=== PATIENT | female | born 1980 | race African-American/Black ===

== ENCOUNTER 2023-08-04 10:54 | Emergency (ER) | payer BC, OTHER, SELFPAY ==
[2023-08-04 10:58] VITALS: BP 114/77; PULSE 64; RESP 18; TEMP 37; O2SAT 99; BMI 33.1
--- NOTE | 2023-08-04 11:07 | ED_ITS ---
HPI - General Adult General Chief complaint: Abdominal Pain Stated complaint: facial swelling/ abd pain Time Seen by Provider: 08/04/23 11:16 Source: patient Mode of arrival: ambulatory Limitations: no limitations History of Present Illness HPI narrative: 43 yo female with PMH of fibromyalgia notes a few days of URI symptoms green bloody nasal drainage - facial pain and swelling feeling weak and dizzy, poor PO intake. taking celecoxib for chronic knee pain - felt unwell working for [employer] yesterday and couldn't finish driving or working. The patient notes her upper abdomen hurts and she has hx of gastritis not on antacids no GIB symptoms, no vomiting has had mild nausea. Could not make it to work today. MD complaint: sinus complaints, upper abdominal pain Onset (ago): day(s) (few) Location: head and abdomen Radiation: non-radiation Severity: moderate Quality: aching Pain Consistency: intermittent Relieving factors: rest Exacerbating factors: movement Associated symptoms: other (sinus pressure, congestion, abdominal pain, nausea, feels weak) Treatments prior to arrival: cold therapy Related Data Previous Rx's Medication Instructions Recorded azithromycin 250 mg tablet See Rx Instructions PO .COMPLEX #6 08/04/23 tabs omeprazole 20 mg capsule,delayed 20 mg PO DAILY #10 caps 08/04/23 release Allergies Allergy/AdvReac Type Severity Reaction Status Date / Time amoxicillin Allergy Intermediate Diarrhea Verified 08/04/23 10:58 Sulfa (Sulfonamide Allergy Intermediate Rash Verified 08/04/23 10:58 Antibiotics) Review of Systems 2 Review of Systems: Constitutional : No Fever, No Chills, pos Fatigue ENT/Mouth : No sore throat, No Rhinorrhea, pos sinus pressure, pos congestion Eyes: No Eye Pain, No Swelling, No Redness Cardiovascular : No Chest Pain, No SOB, No Dyspnea on Exertion Respiratory : No Cough, No Sputum Gastrointestinal : pos Nausea, No Vomiting, No Diarrhea, pos abdominal Pain Genitourinary : No Dysuria, No Urinary Frequency, No Hematuria, Musculoskeletal : No joint pain, No Myalgias, No Joint Swelling Skin : No Skin Lesions, No rash Neuro : No Weakness, No Numbness, pos intermittent Dizziness, no Headache Psych : No Anxiety/Panic, No Depression Heme/Lymph: No Bruising, No Bleeding,No Lymphadenopathy Endocrine : No Polyuria, No Polydipsia All other systems reviewed and are negative [facility] Past Medical History Attestation statement: The following information was validated with the patient. Medical History Fibromyalgia Social History Social History (Updated 08/04/23 @ 11:59 by Vaishali Lemus DO) Patient Tobacco Use Status: Never used Tobacco Physical Exam ED Vital Signs: Vital Signs - 24 hr 08/04/23 10:58 Temperature 98.6 F Pulse Rate 64 Respiratory Rate 18 Blood Pressure 114/77 Pulse Oximetry 99 Oxygen Delivery Method Room Air BMI result Body Mass Index 33.1 Appearance: Alert. Oriented X3. No acute distress. Eyes: Pupils equal, round and reactive to light. ENT: Pharynx normal. Sinus max ttp no facial cellulitis Neck: Normal inspection. Neck supple. no meningeal signs CVS: Normal heart rate and rhythm. Pulses normal. Respiratory: No respiratory distress. Breath sounds normal. Abdomen: Soft and nontender. no rebound Skin: Skin warm and dry. Normal skin color. Normal skin turgor. Extremities: No lower extremity edema. No calf ttp Neuro: Oriented X 3. No motor deficit. No sensory deficit. Course Course Course Narrative: This is an RME: Additional HPI, ROS, PE not included below will be deferred to primary provider. This is a 43-year-old female presenting to the emergency department with complaints of sore throat, nasal congestion abdominal pain nauseous yesterday. Vital signs within. Patient appears comfortable, in no acute distress. Plan: Labs viral swab, UA Medical Decision Making Medical Decision Making [facility] Narrative: 43 yo female with PMH of gastritis and fibromyalgia here with sinusitis no concern for deeper space infection and no GIB symptoms suspect upper abdominal pain associated with celecoxib use - she has no other symptoms and benign abdominal exam no concern for perforated ulcer. At this time will obtain basic labs, viral panel. Start on PPI, hold her celecoxib and start on zpak. anticipate DC home. Differential Diagnosis Differential Diagnoses: The differential diagnosis associated with the presentation includes viral syndrome, gastritis, sinusitis Admission/Observation Consideration of admission/observation: Escalation of care including admission/observation considered not toxic, labs stable, can be managed at home Lab Data [facility] Lab Attestation statement: I reviewed the patient's lab results. 08/04/23 11:13 08/04/23 11:13 Labs: Lab Results 08/04/23 Range/Units 11:13 WBC 5.6 (4.8-10.8) X10*3/uL RBC 4.69 (4.20-5.50) X10*6/uL Hgb 12.6 (12.0-16.0) g/dl Hct 40.0 (37.0-47.0) % MCV 85.3 (80.0-98.0) fL MCH 26.9 L (27.0-33.0) pg MCHC 31.5 (31.0-35.0) g/dl RDW 13.7 (11.0-16.0) % Plt Count 261 (160-400) X10*3/uL MPV 10.0 (9.4-12.3) fL Immature Gran % (Auto) 0.2 (0.0-0.4) % Neut % (Auto) 55.3 (45-73) % Lymph % (Auto) 33.3 (20-40) % Morrill % (Auto) 8.9 (2-11) % Eos % (Auto) 1.6 (0-4) % Baso % (Auto) 0.7 (0-2) % Lymph # (Auto) 1.9 (1.2-4.9) X10*3/uL Morrill # (Auto) 0.5 (0.1-1.2) X10*3/uL Eos # (Auto) 0.1 (0.0-0.4) X10*3/uL Baso # (Auto) 0.0 (0.0-0.2) X10*3/uL Abs Immat Gran (auto) 0.01 (0.00-0.03) X10*3/uL Absolute Neuts (auto) 3.1 (2.0-8.3) x10*3/uL Absolute Nucleated RBC 0.000 (0.0-0.012) X10*3/uL Nucleated RBC % (auto) 0.0 (0.0-0.2) /100WBC Prescription Management I considered prescription management with: Antibiotic and Other Discharge Plan Discharge Clinical Impression: Sinusitis Qualifiers: Sinusitis location: maxillary Chronicity: acute Recurrence: non-recurrent Q ualified Code(s): J01.00 - Acute maxillary sinusitis, unspecified Gastritis Qualifiers: Gastritis type: unspecified gastritis Chronicity: acute Gastritis bleeding: w ithout bleeding Qualified Code(s): K29.00 - Acute gastritis without bleeding Patient Disposition: Home, Self-Care Instructions: Gastritis (ED), Sinusitis (ED) Additional Instructions: return for fevers, worsening symptoms, difficulty breathing, inability to eat or drink, stop taking NSAIDs (motrin, ibuprofen, aleve) you can take tylenol stay hydrated. take a probiotic while on antibiotic you can use saline flushed over the counter for sinus relief as well. COVID test negative, labs look good Prescriptions: New azithromycin 250 mg tablet See Rx Instructions .ROUTE .COMPLEX Qty: 6 0RF Rx Instructions: For 250 mg dose pack: take 500 mg today (day 1), then 250 mg for 4 days (days 2-5) omeprazole 20 mg capsule,delayed release(DR/EC) 20 mg PO DAILY Qty: 10 0RF Stand Alone Forms: Work/School Release
[2023-08-04 11:20] LABS: MANUAL DIFF FLAG NO
[2023-08-04 11:27] LABS: Basophils Percent Auto 0.7 % (0-2); Eosinophils Absolute Auto 0.1 X10*3/uL (0.0-0.4); Eosinophils Percent Auto 1.6 % (0-4); Hemoglobin 12.6 g/dl (12.0-16.0); Imm Gran Abs Auto 0.01 X10*3/uL (0.00-0.03); Imm Gran Pct Auto 0.2 % (0.0-0.4); Lymphocytes Absolute Auto 1.9 X10*3/uL (1.2-4.9); Lymphocytes Percent Auto 33.3 % (20-40); Mean Corpuscular HGB Conc 31.5 g/dl (31.0-35.0); Mean Corpuscular Hemoglobin 26.9 pg (27.0-33.0); Mean Corpuscular Volume 85.3 fL (80.0-98.0); Monocytes Absolute Auto 0.5 X10*3/uL (0.1-1.2); Monocytes Percent Auto 8.9 % (2-11); Neutrophils Absolute Auto 3.1 x10*3/uL (2.0-8.3); Neutrophils Percent Auto 55.3 % (45-73); Platelet Count 261 X10*3/uL (160-400); Red Blood Count 4.69 X10*6/uL (4.20-5.50); Red Cell Distribution Width 13.7 % (11.0-16.0); White Blood Count 5.6 X10*3/uL (4.8-10.8)
[2023-08-04 11:45] LABS: Alanine Aminotransferase 12 U/L (0-31); Albumin Level 4.1 g/dL (3.5-5.0); Alkaline Phosphatase 59 U/L (39-117); Anion Gap 9 (12-20); Aspartate Amino Transferase 18 U/L (5-31); Bilirubin Direct 0.3 mg/dL (0.0-0.5); Blood Urea Nitrogen 10 mg/dL (9-16); Calcium 9.1 mg/dL (8.4-10.2); Carbon Dioxide 27 mmol/L (22-29); Chloride 107 mmol/L (96-108); Creatinine Clr Calc Pharmacy 88.6; Estimated Glomerular Filt Rate > 60; Glucose Random 94 mg/dL (60-115); HCG Quantitative < 2 mIU/mL; Lipase 12 U/L (8-78); Potassium 4.1 mmol/L (3.3-5.1); Sodium 139 mmol/L (135-145); Total Protein 7.4 g/dL (6.5-8.0)
[2023-08-04 11:57] LABS: Influenza A PCR NEGATIVE (Negative); Influenza B PCR NEGATIVE (Negative); Resp Syncy Virus RNA Qual PCR NEGATIVE (Negative); SARS COV2 PCR INHOUSE NEGATIVE (Negative)
[2023-08-04 12:12] VITALS: BP 129/86; PULSE 67; RESP 16; O2SAT 100
[2023-08-04 12:27] LABS: Appearance Urine Clear; Color Urine Yellow; Glucose Urine UA Negative (Negative); Leukocyte Esterase Urine Negative (Negative); Nitrite Urine Negative (Negative); PH 5.5 (5.0-9.0); Urine Blood Negative (Negative); Urine Ketones Negative (Negative); Urine Protein Negative (Neg-Trace)
== END 2023-08-04 12:33 | disposition home or self-care (01) ==
PROVIDERS: Physician Assistant Medical; Emergency Provider Emergency Medicine; PCP Nurse Practitioner Family
DX: J01.00 Acute maxillary sinusitis, unspecified (principal); K29.00 Acute gastritis without bleeding; Z20.822 Contact with and (suspected) exposure to COVID-19; Z20.828 Contact with and (suspected) exposure to other viral communicable diseases
CPT/HCPCS: 0241U; 36415; 80048; 80076; 81003; 83690; 84702; 85025; 99283; 99284

== ENCOUNTER 2023-11-20 07:39 | Emergency (ER) | payer OTHER, SELFPAY ==
--- NOTE | ~2023-11-20 | XR_ITS ---
EXAMINATION: XR SHOULDER, LEFT CLINICAL INFORMATION: Pain, no injury COMPARISON: None available. TECHNIQUE: AP external rotation, Grashey, scapular Y, and axillary views of the left shoulder. FINDINGS: The bones and soft tissues are normal. No fracture. Glenohumeral and acromioclavicular alignment is anatomic with normal joint space. No abnormal soft tissue calcifications. XR/XR shoulder LT min 2V IMPRESSION: Normal left shoulder.
[2023-11-20 07:57] VITALS: BP 138/63; PULSE 60; RESP 16; TEMP 37.2; O2SAT 98; BMI 34.1
--- NOTE | 2023-11-20 08:01 | ED.GENADULT ---
HPI - General Adult General Chief complaint: Extremity Problem Stated complaint: L Shoulder Pain No Injury Time Seen by Provider: 11/20/23 08:01 Source: patient Mode of arrival: ambulatory Limitations: no limitations History of Present Illness HPI narrative: Patient is a 43 yo assigned female at , with a history of fibromyalgia, presents to the ED with left shoulder pain. 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 A couple days ago she started to experience moderate pain in her left shoulder that has interfered with her ability to perform daily tasks, which prompted her to come in. Patient denies pain radiation, chest pain, and any incitable traumatic injury to the area. MD complaint: Left shoulder pain Onset (ago): day(s) (2) Location: left and upper extremity (Shoulder) Radiation: non-radiation Severity: mild Severity scale (1-10): 3 Quality: aching Pain Consistency: intermittent Relieving factors: rest Exacerbating factors: movement Associated symptoms: denies other symptoms Treatments prior to arrival: none Related Data Previous Rx's Medication Instructions Recorded azithromycin 250 mg tablet See Rx Instructions PO .COMPLEX #6 08/04/23 tabs omeprazole 20 mg capsule,delayed 20 mg PO DAILY #10 caps 08/04/23 release cyclobenzaprine 5 mg tablet 5 mg PO TID PRN muscle spasm 7 11/20/23 days #21 tabs Allergies Allergy/AdvReac Type Severity Reaction Status Date / Time amoxicillin Allergy Intermediate Diarrhea Verified 08/04/23 10:58 Sulfa (Sulfonamide Allergy Intermediate Rash Verified 08/04/23 10:58 Antibiotics) Review of Systems Constitutional: Constitutional: Reports no additional constitutional complaints, Denies chills, Denies fever(s) and Denies night sweats Eyes: Eyes: Reports no additional eye complaints, Denies blurry vision, Denies change in vision, Denies diplopia, Denies eye discharge, Denies loss of vision and Denies eye pain ENT: Denies dizziness Cardiovascular: Cardiovascular: Reports no additional cardiovascular complaints, Denies chest pain, Denies lightheadedness, Denies Loss of Consciousness and Denies dyspnea Respiratory: Respiratory: Reports no additional respiratory complaints and Denies dyspnea Gastrointestinal: Gastrointestinal: Reports no additional gastrointestinal complaints, Denies abdominal pain, Denies melena, Denies hematochezia, Denies change in bowel habits and Denies change in stool character Genitourinary: Genitourinary: Denies hematuria, Denies urinary frequency, Denies dysuria, Denies urinary incontinence, Denies urinary hesitancy and Denies urinary urgency Musculoskeletal: Musculoskeletal: Reports no additional musculoskeletal complaints, Denies numbness and Denies tingling Comments: left shoulder pain Neurologic: Denies dizziness, Denies loss of vision, Denies numbness and Denies tingling Psychiatric: Psychiatric: Reports no additional psychiatric complaints Endocrine: Endocrine: Reports no additional endocrine complaints Hematologic/Lymphatic: Hematologic/Lymphatic: Reports no additional hematologic/lymphatic complaints Allergic/Immunologic: Allergic/Immunologic: Reports no additional allergic/immunologic complaints [facility] Past Medical History Attestation statement: The following information was validated with the patient. Source: old records reviewed and nursing notes reviewed Medical History Fibromyalgia Social History Social History Alcohol intake: current Alcohol type: wine Patient Tobacco Use Status: Never used Tobacco Advance Directives: No Physical Exam ED Vital Signs: Vital Signs - 24 hr 11/20/23 07:57 Temperature 99 F Pulse Rate 60 Respiratory Rate 16 Blood Pressure 138/63 Pulse Oximetry 98 Oxygen Delivery Method Room Air BMI result Body Mass Index 34.1 Const General: cooperative, no acute distress, alert and awake Nutritional Appearance: average body habitus Orientation/consciousness: patient oriented x3 Limitations: no limitations HENMT Head: Yes normal to inspection and Yes atraumatic Ears: hearing grossly normal bilaterally and external ears normal General nose exam: Normal external nose present, no nasal discharge noted and no epistaxis Face and sinus: Yes normal facial exam, No abrasion and No laceration Mouth: Normal oral and palatal mucosa present, no drooling and no muffled voice Eyes General: appearance normal, both eyes and all related structures Periorbital: periorbital findings normal Eyelids: Yes eyelids normal Conjunctivae: conjunctivae normal Pupils: Equal, round and reactive pupils present EOM: EOMs intact bilaterally Neck Neck: Yes normal visual inspection, Yes full ROM and Yes no lymphadenopathy Chest Chest palpation & inspection: normal inspection of the chest Resp Effort & Inspection: normal respiratory effort and able to speak in complete sentences GI Inspection: Yes normal to inspection Neuro General: patient oriented x3 Cranial nerves: Yes Equal, round and reactive pupils present Cognition (Neuro): normal cognition Motor exam (neuro): 5/5 motor strength present throughout Sensory Exam: Normal double simultaneous stimulation for sensation Coordination: [id number] test normal Extrem Other: pain with left shoulder ROM General: Yes normal to inspection, Yes full ROM and Yes capillary refill normal Left upper extremity: shoulder/upper arm Details: abnormal ROM Details: pain with active ROM and pain with passive ROM; no deformity Psych Appearance: grossly normal Mental Status: mental status grossly normal Affect: normal affect Attitude: cooperative Thought process: Normal thought process present Thought content: Normal thought content present Insight: Good insight present (Psych) Medications Administered Discontinued Medications Generic Name Dose Route Start Last Admin Trade Name Freq PRN Reason Stop Dose Admin Cyclobenzaprine HCl 5 mg 11/20/23 08:44 11/20/23 09:01 Cyclobenzaprine Hcl 5 Mg Tablet PO 11/20/23 08:45 5 mg ONCE ONE Administration Methylprednisolone Sodium Succinate 60 mg 11/20/23 08:44 11/20/23 09:01 Methylprednisolone Sod Succ 125 Mg/2 Ml Vial IM 11/20/23 08:45 60 mg ONCE ONE Administration Medical Decision Making Medical Decision Making [facility] Narrative: Patient is a 43 year old assigned female at with a history of fibromyalgia presenting to the emergency department today with left shoulder pain. Patient's physical exam showed pain with active and passive ROM of the left shoulder but was otherwise unremarkable. Patient's left shoulder x-ray showed no acute process. I explained my physical exam findings as well as all test results to the patient. I answered all questions asked by the patient. I stressed the importance of the patient taking her medication as prescribed. I stressed the importance of the patient following up with her primary care provider, an orthopedic provider, and given this is a work place injury - [facility]. I stressed the importance of the patient returning to the emergency department immediately if her symptoms were to worsen or if she were to develop any dizziness, shortness of breath, difficulty breathing, chest pain, blurry vision, loss of vision, nausea, vomiting, abdominal pain, fever, chills, back pain, or any other complaints. Patient verbalized agreement and understanding with this treatment plan and discharge. Differential Diagnosis Differential Diagnoses: The differential diagnosis associated with the presentation includes Rotator cuff injury Shoulder pain Shoulder strain Shoulder sprain Admission/Observation Consideration of admission/observation: Escalation of care including admission/observation considered Patient would have been admitted to the hospital had her work up had any findings where hospital admission was appropriate and her clinical presentation warranted hospital admission. Independent Interpretation I performed an independent interpretation of an: Plain X-Ray Interpretation: My interpretation is in agreement with the radiologist's impression of this imaging study. EXAMINATION: XR SHOULDER, LEFT CLINICAL INFORMATION: Pain, no injury COMPARISON: None available. TECHNIQUE: AP external rotation, Grashey, scapular Y, and axillary views of the left shoulder. FINDINGS: The bones and soft tissues are normal. No fracture. Glenohumeral and acromioclavicular alignment is anatomic with normal joint space. No abnormal soft tissue calcifications. XR/XR shoulder LT min 2V IMPRESSION: Normal left shoulder. Dictated By: Peter Ramos MD Signed By: Electronically signed by Peter Ramos MD 11/20/23 0878 Radiology Impression Discussion of test interpretation with radiology: I have reviewed the radiologist's reading. Prescription Management I considered prescription management with: Pain Medication (patient prescribed pain medication) Discharge Plan Discharge Clinical Impression: Acute shoulder pain, Rotator cuff injury Patient Disposition: Home, Self-Care Instructions: Rotator Cuff Injury (ED), Shoulder Pain (ED), Rotator Cuff Injury Exercises (DC) Additional Instructions: Follow up with your primary care provider and an orthopedic provider. Return to the emergency department immediately if your symptoms worsen or if you develop any dizziness, shortness of breath, difficulty breathing, chest pain, blurry vision, loss of vision, nausea, vomiting, abdominal pain, fever, chills, back pain, or any other complaints. Prescriptions: New cyclobenzaprine 5 mg tablet 5 mg PO TID PRN (Reason: muscle spasm) 7 Days Qty: 21 0RF No Action azithromycin 250 mg tablet See Rx Instructions .ROUTE .COMPLEX Qty: 6 0RF Rx Instructions: For 250 mg dose pack: take 500 mg today (day 1), then 250 mg for 4 days (days 2-5) omeprazole 20 mg capsule,delayed release(DR/EC) 20 mg PO DAILY Qty: 10 0RF Referrals: [facility] [Provider Group] (Call to establish and follow up with an orthopedic provider. ) [facility] [Provider Group] (Given this is a work related injury, you should follow up with [facility].) Giovana Walsh NP [Primary Care Provider] - Stand Alone Forms: Work/School Release Interventions: ED Discharge Assessment Last Done: 11/20/23 09:11 Discharge Date/Time: 11/20/23 09:12 Print Language: Ivorian
[2023-11-20] MEDS: methylPREDNISolone Sod Succ 125 MG/2 ML VIAL 60 MG IM (09:01)
[2023-11-20] MEDS: Cyclobenzaprine HCl 5 MG TABLET PO (09:01)
--- NOTE | 2023-11-20 09:10 | PC.NURSE ---
pt medicated per order
== END 2023-11-20 09:12 | disposition home or self-care (01) ==
PROVIDERS: Emergency Provider Student in an Organized Health Care Education/Training Program; PCP Nurse Practitioner Family
DX: S43.422A Sprain of left rotator cuff capsule, initial encounter (principal); M25.512 Pain in left shoulder; X50.0XXA Overexertion from strenuous movement or load, initial encounter; X50.9XXA Other and unspecified overexertion or strenuous movements or postures, initial encounter; Y93.9 Activity, unspecified; Y92.9 Unspecified place or not applicable; Y99.0 Civilian activity done for income or pay
CPT/HCPCS: 73030; 99283; J2930

== ENCOUNTER 2023-11-28 07:57 | Outpatient (AMB) | payer OTHER, SELFPAY ==
--- NOTE | 2023-11-28 08:00 | MHC.OFFVIS ---
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 Patient reports her pain has been going on for about a week and is a 5 on the 1-10 pain scale. She states that she is using a muscle relaxer and Tylenol. She denies injury,injections, and surgery. She reports weakness when lifting her left hand above shoulder height. The patient does have fibromyalgia. 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, 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 Physical Exam Const Other: Well-nourished well-developed very friendly female awake alert and oriented x3 in no acute distress Extrem Other: Bilateral upper extremity examination shows good capillary refill, no skin lesions noted, normal sensation light touch Left shoulder examination shows decreased range of motion when compared to her right shoulder, 4+ out of 5 strength with supraspinatus testing, positive impingement signs, no instability Office Procedures Joint Injection/Drain Joint Injection/Drain Primary Site: left shoulder Prep: site was prepped using aseptic technique Injected: 40 mg of, DepoMedrol and 1% plain lidocaine Procedure: The patient tolerated the procedure well Coding 60529 - Large joint Procedure code (CPT) selection complete Results Reviewed Results Reviewed: X-rays of the patient's left shoulder show moderate to severe acromioclavicular joint narrowing, a type 2 acromion, no acute bony abnormalities Assessment & Plan Assessment & Plan (1) Left shoulder pain: Code(s): M25.512 - Pain in left shoulder (2) Impingement syndrome of left shoulder: Code(s): M75.42 - Impingement syndrome of left shoulder Plan Ms. Marino presents with left shoulder pain and weakness due to impingement syndrome as well as possible rotator cuff tearing. I had a lengthy discussion with the patient regarding the treatment options. The risks and benefits of a left shoulder cortisone injection were discussed at length with the patient. The patient wished to proceed. She tolerated the injection well. I will also send the patient for an MRI of her left shoulder to further evaluate the status of her rotator cuff tendons. I will see her back once the MRI is completed to discuss the findings and treatment options. She will continue with her range of motion exercises in the meantime to prevent stiffness. Feel free to call me at any time should questions regarding her orthopedic management arise. I spent 22 minutes in reviewing the patient's records and imaging studies, seeing the patient and documenting in the medical record. Orders: Orders MR shoulder LT wo con Today M25.512 - Pain in left shoulder AMB Joint Injection/Aspiration Today M75.42 - Impingement syndrome of left shoulder Coding Level of Care Code New Pt Level 2 (35299) Diagnoses Left shoulder pain M25.512 Impingement syndrome of left shoulder M75.42 CPT Codes Coding - 14438 Large joint: 87540 - Large joint ([id number])
== END 2023-11-28 08:33 | disposition home or self-care (01) ==
PROVIDERS: PCP Nurse Practitioner Family; Visit Provider Orthopaedic Surgery
DX: M25.512 Pain in left shoulder (principal); M75.42 Impingement syndrome of left shoulder
CPT/HCPCS: 20610; 99203

== ENCOUNTER → 2023-11-28 07:57 | Outpatient (BNVA) | payer OTHER, SELFPAY | PROVIDERS: PCP Nurse Practitioner Family; Visit Provider Orthopaedic Surgery | DX: M75.42 Impingement syndrome of left shoulder (principal); M25.512 Pain in left shoulder | CPT/HCPCS: 20610; 99202; J1020 ==

== ENCOUNTER 2024-09-08 08:36 | Emergency (ER) | payer OTHER, SELFPAY ==
--- NOTE | ~2024-09-08 | XR_ITS ---
EXAMINATION: XR CHEST CLINICAL INFORMATION: cough COMPARISON: None available. TECHNIQUE: 2 views of the chest were obtained. FINDINGS: Metallic rounded devices overlie the soft tissues of the bilateral cervical regions. There is no gross pneumothorax. Heart size is normal. No significant pleural effusion. No focal consolidation. A 5 mm nodule overlies a mid thoracic vertebral body, possibly related to parenchymal nodule or vascularity versus bony nodule. Direct correlation with prior images is recommended and if prior images are provided, an addendum will be dictated. In the absence of prior images, CT scan recommended for further evaluation. XR/XR chest 2V IMPRESSION: A 5 mm nodule overlies a mid thoracic vertebral body, possibly related to parenchymal nodule or vascularity versus bony nodule. Direct correlation with prior images is recommended and if prior images are provided, an addendum will be dictated. In the absence of prior images, CT scan recommended for further evaluation. This study was presented today to September 08, 2024 for interpretation. Stat results provided at this time as requested by referring provider. Electronically signed by: Cassandra Beck MD 09/08/2024 09:45 AM EST
--- OUTSIDE RECORDS SUMMARY | 2024-09-08 08:40 | XMS_ITS ---
Author Name [facility] Organization Unknown History of Medication Use Medication Directions Dispensed Refills Start Date End Date Stat us meloxicam (MOBIC) 15 mg tablet Take 1 tablet (15 mg total) by mouth daily. 03/15/2022 active fluconazole (DIFLUCAN) 150 mg tablet Take 1 tablet (150 mg total) by mouth once for 1 dose. Repeat in 72 hours if still symptomatic 07/23/2022 active ondansetron (Zofran) 8 mg tablet Take 1 tablet (8 mg total) by mouth every 8 (eight) hours as needed for nausea or vomiting for up to 7 days. 03/29/2022 active metroNIDAZOLE (FLAGYL) 500 mg tablet TAKE 1 TABLET BY MOUTH IN THE MORNING AND 1 AT BEDTIME FOR 7 DAYS 05/19/2022 aborted metroNIDAZOLE (Metrogel Vaginal) 0.75 % (37.5mg/5 gram) gel Apply vaginally every night for 5 nights. Then once a week for 6 months 07/23/2022 active doxycycline (VIBRAMYCIN) 100 mg capsule Take 1 capsule (100 mg total) by mouth in the morning and 1 capsule (100 mg total) before bedtime. Do all this for 7 days. 03/19/2022 aborted metroNIDAZOLE (FLAGYL) 500 mg tablet Take 1 tablet (500 mg total) by mouth in the morning and 1 tablet (500 mg total) before bedtime. Do all this for 7 days. 04/06/2022 active Problems Problem Status Onset Date Problem Type Date of Resoluti on Source Nausea active 2020-08-17 ProblemAct [facility] ADD (attention deficit disorder) active 2018-01-16 ProblemAct [facility] Fibromyalgia active 2018-01-16 ProblemAct [facility] Menorrhagia with regular cycle active 2018-01-25 ProblemAct [facility] Epigastric pain active 2020-08-[address] Problem[address] [facility]
[2024-09-08 08:43] VITALS: BP 146/96; PULSE 76; RESP 16; TEMP 36.5; O2SAT 98; BMI 37.6
[2024-09-08 09:57] LABS: Influenza A PCR NEGATIVE (Negative); Influenza B PCR NEGATIVE (Negative); Resp Syncy Virus RNA Qual PCR NEGATIVE (Negative); SARS COV2 PCR INHOUSE NEGATIVE (Negative)
[2024-09-08 09:58] LABS: IDNOW Serial# 58CA691E; Strep A Nucleic Acid Negative (Negative)
[2024-09-08 11:11] VITALS: BP 150/96; PULSE 62; RESP 16; O2SAT 100
--- NOTE | 2024-09-08 11:17 | ED_ITS ---
HPI - General Adult General Chief complaint: Upper Respiratory Symptoms Stated complaint: Headache, bilateral ear pain Time Seen by Provider: 09/08/24 09:02 Source: patient and RN notes reviewed Mode of arrival: ambulatory Limitations: no limitations History of Present Illness ED Provider: Rozina Nolasco PA-C [facility] narrative: This is a 44-year-old female, with a history of fibromyalgia, who presents emergency department with complaints of headaches, sore throat, bilateral ear pain, and productive cough for the last week. Patient has been taking [id number] cold and flu medication without any relief. No known fevers. No chest pain or shortness of breath. She states that her ears have been causing her to have significant pain. No other complaints or concerns at this time. MD complaint: Cough, sore throat, bilateral ear pain Onset (ago): week(s) Relieving factors: none Exacerbating factors: none Associated symptoms: cough and headaches Treatments prior to arrival: none Related Data Previous Rx's ?Medication ?Instructions ?Recorded azithromycin 250 mg tablet See Rx Instructions PO .COMPLEX #6 08/04/23 tabs omeprazole 20 mg capsule,delayed 20 mg PO DAILY #10 caps 08/04/23 release cyclobenzaprine 5 mg tablet 5 mg PO TID PRN muscle spasm 7 11/20/23 days #21 tabs azithromycin 250 mg tablet See Rx Instructions PO .COMPLEX #6 09/08/24 tabs Allergies Allergy/AdvReac Type Severity Reaction Status Date / Time amoxicillin Allergy Intermediate Diarrhea Verified 09/08/24 08:45 Sulfa (Sulfonamide Allergy Intermediate Rash Verified 09/08/24 08:45 Antibiotics) Review of Systems Review of Systems: Yes all other systems are reviewed and are negative Constitutional: Constitutional: Reports as per [facility] Past Medical History Medical History Fibromyalgia Social History Social History (Updated 11/28/23 @ 08:06 by Christie Ledesma CMA) Alcohol intake: current Alcohol type: wine Patient Tobacco Use Status: Never used Tobacco Advance Directives: No Advance Directives Information Provided: Yes 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 After irrigation, TMs are intact, no TM perforation, no evidence of erythema or edema. Head: Yes normal to inspection, Yes normocephalic and Yes atraumatic Ears: hearing grossly normal bilaterally and TM's normal bilaterally General nose exam: Normal external nose present Face and sinus: Yes normal facial exam Mouth: Normal oral and palatal mucosa present, oropharynx normal and moist mucous membranes Throat: Yes posterior oropharynx normal Eyes General: appearance normal, both eyes and all related structures Eyelids: Yes eyelids normal Conjunctivae: conjunctivae normal Sclerae: sclerae normal Pupils: Equal, round and reactive pupils present EOM: EOMs intact bilaterally Neck Neck: Yes normal visual inspection, Yes full ROM and Yes no lymphadenopathy Lymphatic: no lymphadenopathy noted Chest Chest palpation & inspection: normal inspection of the chest Resp Effort & Inspection: normal respiratory effort and able to speak in complete sen tences Auscultation: clear to auscultation bilaterally, no crackles, no rales, no rhonchi and no wheezes Cardio Rate: regular rate Rhythm: regular rhythm Heart sounds: S1 normal heart sound present and S2 normal heart sound present GI Inspection: Yes normal to inspection Skin General skin exam: no rashes or lesions noted Trauma: no lacerations or abrasions Wounds: no wounds Neuro General: patient oriented x3 and moves all extremities Cranial nerves: Yes Equal, round and reactive pupils present Extrem General: Yes normal to inspection Right upper extremity: normal to inspection Left upper extremity: normal to inspection Right lower extremity: normal to inspection Left lower extremity: normal to inspection Medications Administered Discontinued Medications Generic Name Dose Route Start Last Admin Trade Name Freq PRN Reason Stop Dose Admin Docusate Sodium 100 mg 09/08/24 11:29 09/08/24 11:34 Docusate Sodium 100 Mg/10 Ml Liquid PO 09/08/24 11:30 100 mg ONCE ONE Administration Medical Decision Making Medical Decision Making MDM Narrative: This is a 44-year-old female who presents emergency department with complaints of headache, bilateral ear pain, cough x1 week. On arrival, vital signs within normal limits. She is speaking full sentences under no acute distress. Bilateral ears are impacted with cerumen, this was irrigated, large cerumen this impacted. Chest x-ray was obtained. Chest x-ray revealing no evidence of pneumonia however there is a 5 mm nodule overlying the midthoracic vertebral body, related to either a parenchymal nodule or vascularity versus pull bony nodule. Discussed this with patient. She will follow-up with her PCP for CT scan. She tested negative for COVID, flu, RSV and strep throat. Will treat as a acute sinusitis, given strict return precautions. Patient stable for discharge Differential Diagnosis Differential Diagnoses: The differential diagnosis associated with the presentation includes Sinusitis, URI, bronchitis, pneumonia Lab Data MDM Lab Attestation statement: I reviewed the patient's lab results. Negative Labs: Lab Results 09/08/24 Range/Units 09:09 Influenza Type A (PCR) NEGATIVE (Negative) Influenza Type B (PCR) NEGATIVE (Negative) RSV RNA Qual (PCR) NEGATIVE (Negative) SARS-CoV-2 RNA (RT-PCR) NEGATIVE (Negative) S. pyogenes GrpA NICOLE Negative (Negative) Radiology Impression Discussion of test interpretation with radiology: I have reviewed the radiologist's reading. Radiologist Impression: XR/XR chest 2V IMPRESSION: A 5 mm nodule overlies a mid thoracic vertebral body, possibly related to parenchymal nodule or vascularity versus bony nodule. Direct correlation with prior images is recommended and if prior images are provided, an addendum will be dictated. In the absence of prior images, CT scan recommended for further evaluation. This study was presented today to September 08, 2024 for interpretation. Stat results provided at this time as requested by referring provider. Electronically signed by: Cassandra Beck MD 09/08/2024 09:45 AM [facility] Dictated By: Cassandra Beck MD Discharge Plan Discharge Clinical Impression: Sinusitis, Bilateral impacted cerumen, Abnormal x-ray Patient Disposition: Home, Self-Care Instructions: Sinusitis (ED) Additional Instructions: You were seen in the emergency department due to multiple complaints. Both of your ears were impacted with ear wax, we flushed both of your ears. Please take prescribed antibiotic as directed, finish the entire course even if your symptoms improve. Alternate between ibuprofen and Tylenol as needed for pain and fevers. You tested negative for COVID, flu, RSV, and strep throat today. Your chest x-ray does show a nodule, this needs to be followed up by your primary care physician as they likely need to perform a CT scan. It is unclear how long he had this nodule. If any new or worsening symptoms occur including but not limited to chest pain, shortness of breath, worsening headache, fevers not responding to Tylenol or Motrin, worsening pain, please seek emergent care. Prescriptions: New azithromycin 250 mg tablet See Rx Instructions .ROUTE .COMPLEX Qty: 6 0RF Rx Instructions: For 250 mg dose pack: take 500 mg today (day 1), then 250 mg for 4 days (days 2-5) No Action azithromycin 250 mg tablet See Rx Instructions .ROUTE .COMPLEX Qty: 6 0RF Rx Instructions: For 250 mg dose pack: take 500 mg today (day 1), then 250 mg for 4 days (days 2-5) omeprazole 20 mg capsule,delayed release(DR/EC) 20 mg PO DAILY Qty: 10 0RF cyclobenzaprine 5 mg tablet 5 mg PO TID PRN (Reason: muscle spasm) 7 Days Qty: 21 0RF Stand Alone Forms: Work/School Release Interventions: ED Discharge Assessment Last Done: 09/08/24 13:19 Discharge Date/Time: 09/08/24 13:20 Print Language: Malay
[2024-09-08] MEDS: Docusate Sodium 100 MG/10 ML LIQUID PO (11:34)
[2024-09-08 13:19] VITALS: BP 150/96; PULSE 62; RESP 16; TEMP 37.1; O2SAT 100
== END 2024-09-08 13:20 | disposition home or self-care (01) ==
PROVIDERS: Emergency Provider Emergency Medicine
DX: J32.9 Chronic sinusitis, unspecified (principal); H61.23 Impacted cerumen, bilateral; R93.89 Abnormal findings on diagnostic imaging of other specified body structures; J02.9 Acute pharyngitis, unspecified; Z03.818 Encounter for observation for suspected exposure to other biological agents ruled out; R05.9 Cough, unspecified
CPT/HCPCS: 0241U; 69209; 71046; 87651; 99283

== ENCOUNTER 2024-12-23 13:30 | Emergency (ER) | payer OTHER, SELFPAY ==
--- NOTE | ~2024-12-23 | XR_ITS ---
EXAMINATION: XR CHEST 2 VIEWS HISTORY: cough COMPARISON: Comparison is made with the prior examination dated 09/08/2024. FINDINGS: PA and lateral views of the chest are submitted. The lungs are expanded and clear. There is no pleural effusion, pneumothorax, or pulmonary vascular congestion. The heart is normal in size. The bones are intact. XR/XR chest 2V IMPRESSION: No acute cardiopulmonary abnormality. Electronically signed by: Tay Castro MD 12/23/2024 02:00 PM EDT
[2024-12-23 13:36] VITALS: BP 169/88; PULSE 73; RESP 18; TEMP 36.8; O2SAT 99; BMI 36.3
--- NOTE | 2024-12-23 13:37 | ED_ITS ---
HPI - General Adult General Chief complaint: General Medical Stated complaint: Cough, sore throat, STD testing Time Seen by Provider: 12/23/24 15:04 Source: patient and old records reviewed Mode of arrival: ambulatory Limitations: no limitations History of Present Illness ED Provider: HALEY SUERO narrative: 44 yo female no sig PMH here with sore throat and cough/body aches x 1 day she also feels she lost her voice. She did take nyquil with some relief. She has had fevers and chills. No sick contacts. She has longstanding hx of BV and feels like she has an odor - wants to be tested. No n/v/d. She is able to swallow and tolerate PO MD complaint: sore throat, vaginal odor Onset (ago): day(s) (1) Location: mouth Radiation: non-radiation Severity: mild Quality: aching Pain Consistency: intermittent Relieving factors: none Exacerbating factors: other (swallowing) Associated symptoms: cough, fever/chills, malaise and other (myalgias) Related Data Previous Rx's ?Medication ?Instructions ?Recorded azithromycin 250 mg tablet See Rx Instructions PO .COMPLEX #6 08/04/23 tabs omeprazole 20 mg capsule,delayed 20 mg PO DAILY #10 caps 08/04/23 release cyclobenzaprine 5 mg tablet 5 mg PO TID PRN muscle spasm 7 11/20/23 days #21 tabs azithromycin 250 mg tablet See Rx Instructions PO .COMPLEX #6 09/08/24 tabs metronidazole 500 mg tablet 500 mg PO BID 7 days #14 tabs 12/23/24 fluconazole 150 mg tablet 150 mg PO Q3D 2 doses #2 tabs 12/24/24 Allergies Allergy/AdvReac Type Severity Reaction Status Date / Time amoxicillin Allergy Intermediate Diarrhea Verified 12/23/24 13:37 Sulfa (Sulfonamide Allergy Intermediate Rash Verified 12/23/24 13:37 Antibiotics) Review of Systems Review of Systems: Constitutional : pos Fever, pos Chills, No Fatigue ENT/Mouth : pos sore throat, pos Rhinorrhea Eyes: No Eye Pain, No Swelling, No Redness Cardiovascular : No Chest Pain, No SOB, No Dyspnea on Exertion Respiratory : pos Cough, No Sputum Gastrointestinal : No Nausea, No Vomiting, No Diarrhea, No abdominal Pain Genitourinary : No Dysuria, No Urinary Frequency, No Hematuria, Musculoskeletal : No joint pain, pos Myalgias, No Joint Swelling Skin : No Skin Lesions, No rash Neuro : No Weakness, No Numbness, No Dizziness, positive Headache All other systems reviewed and are negative [facility] Past Medical History Attestation statement: The following information was validated with the patient. 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 Oriented X3. No acute distress. Eyes: Pupils equal, round and reactive to light. ENT: Pharynx prior tonsillectomy - uvulua is midline, no petechia, no exudates, uvula is mildly swollen and erythematous no fluid filled sac noted Neck: Normal inspection. Neck supple. CVS: Normal heart rate and rhythm. Pulses normal. Respiratory: No respiratory distress. Breath sounds normal. Abdomen: Soft and nontender. Skin: Skin warm and dry. Normal skin color. Normal skin turgor. Extremities: No lower extremity edema. No calf ttp Neuro: Oriented X 3. No motor deficit. No sensory deficit. CN2-12 intact Course Course Course Narrative: RME, this is a rapid medical exam performed by Shyam Dudley please refer to primary provider for complete H&P- 44-year-old female presents for evaluation of cough, sore throat for the last few days. She also reports vaginal odor and history of recurrent BV. Plan for viral swabs and strep throat testing as well as a chest x-ray. Reevaluation(s) Reevaluation #1: 1-2 hours for BV result will DC and call patient tomorrow if positive based off symptoms and hx will give flagyl Reevaluation #2: Rx in diflucan did leave message with patient to call back 142pm HALEY 12/24/24 Medications Administered Discontinued Medications Generic Name Dose Route Start Last Admin Trade Name Naman PRN Reason Stop Dose Admin Dexamethasone Sodium Phosphate 8 mg 12/23/24 15:28 12/23/24 15:36 Dexamethasone Sod Phosphate 4 Mg/Ml Vial PO 12/23/24 15:29 8 mg ONCE ONE Administration Ibuprofen 600 mg 12/23/24 15:28 12/23/24 15:37 Ibuprofen Oral Susp 200 Mg/10 Ml Oral.Susp PO 12/23/24 15:29 600 mg ONCE ONE Administration Medical Decision Making Medical Decision Making [facility] Narrative: 44 yo female with PMH of BV here with odor feels like she has BV but no n/v now here with sore throat as well on exam no concern for ARMATURE BANDER or epiglottits will obt ain CTNG, BV panel and will start on motrin and dexamethasone. Her uvula is swollen but no other involvement could also be uvulitis. Differential Diagnosis Differential Diagnoses: The differential diagnosis associated with the presentation includes uvulitis, pharyngitis, bv, URI Admission/Observation Consideration of admission/observation: Escalation of care including admission/observation considered not toxic no concern for deeper space infection stable for DC symptoms improved with motrin and dexamethasone will encourage care of viral syndrome and hold antibiotics Lab Data [facility] Lab Attestation statement: I reviewed the patient's lab results. Labs: Lab Results 12/23/24 12/23/24 Range/Units 13:50 15:58 Urine Test NEGATIVE (NEGATIVE) Chlam trachomat DNA PCR NOT DETECTED (Not Detect.) Influenza Type A (PCR) NEGATIVE (Negative) Influenza Type B (PCR) NEGATIVE (Negative) N.gonorrhoeae DNA (PCR) NOT DETECTED (Not Detect.) RSV RNA Qual (PCR) NEGATIVE (Negative) SARS-CoV-2 RNA (RT-PCR) NEGATIVE (Negative) S. pyogenes GrpA NICOLE Negative (Negative) T. vaginalis (PCR) NOT DETECTED (Not Detect) Bact vaginosis (PCR) POSITIVE A (Negative) C. krusei/glabrata (PCR) NOT DETECTED (Not Detect) Celia group (PCR) DETECTED A (Not Detect) Independent Interpretation I performed an independent interpretation of an: Plain X-Ray (normal ) Radiology Impression Discussion of test interpretation with radiology: I have reviewed the radiologist's reading. Prescription Management I considered prescription management with: Antibiotic Discharge Plan Discharge Clinical Impression: Bacterial vaginosis Pharyngitis Qualifiers: Pharyngitis/tonsillitis etiology: unspecified etiology Qualified Code(s): J02.9 - Acute pharyngitis, unspecified Patient Disposition: Home, Self-Care Instructions: Bacterial Vaginosis (ED), Pharyngitis (ED) Additional Instructions: no covid, flu, rsv, strep test negative at this time you were given motrin and dexamethasone which is a steroid and will help for the next few days please return for worsening symptoms, increased problems swallowing, or any other concerns. On metronidazole, do NOT drink alcohol.? Call your provider if a metallic taste, loss of appetite, or nausea makes it difficult for you to eat.? Call your provider promptly if tingling develops in your hands or feet after you have taken a total of 30 grams or more of metronidazole. ? BV test pending if positive will call you tomorrow Prescriptions: New metronidazole 500 mg tablet 500 mg PO BID 7 Days Qty: 14 0RF fluconazole 150 mg tablet 150 mg PO Q3D Qty: 2 0RF No Action azithromycin 250 mg tablet See Rx Instructions .ROUTE .COMPLEX Qty: 6 0RF Rx Instructions: For 250 mg dose pack: take 500 mg today (day 1), then 250 mg for 4 days (days 2-5) omeprazole 20 mg capsule,delayed release(DR/EC) 20 mg PO DAILY Qty: 10 0RF azithromycin 250 mg tablet See Rx Instructions .ROUTE .COMPLEX Qty: 6 0RF Rx Instructions: For 250 mg dose pack: take 500 mg today (day 1), then 250 mg for 4 days (days 2-5) cyclobenzaprine 5 mg tablet 5 mg PO TID PRN (Reason: muscle spasm) 7 Days Qty: 21 0RF Stand Alone Forms: Work/School Release Interventions: ED Discharge Assessment Last Done: 12/23/24 16:49 Discharge Date/Time: 12/23/24 16:49 Print Language: Azeri
[2024-12-23 14:08] LABS: IDNOW Serial# 58CA691E; Strep A Nucleic Acid Negative (Negative)
[2024-12-23 14:34] LABS: Influenza A PCR NEGATIVE (Negative); Influenza B PCR NEGATIVE (Negative); Resp Syncy Virus RNA Qual PCR NEGATIVE (Negative); SARS COV2 PCR INHOUSE NEGATIVE (Negative)
[2024-12-23] MEDS: dexAMETHasone sod phosphate 4 MG/ML VIAL 8 MG PO (15:36)
[2024-12-23] MEDS: Ibuprofen Oral Susp 200 MG/10 ML ORAL.SUSP 600 MG PO (15:37)
[2024-12-23 15:56] VITALS: BP 155/89; PULSE 79; RESP 16; TEMP 36.6; O2SAT 98
[2024-12-23 16:11] LABS: UPreg QC Valid YES; Urine Pregnancy NEGATIVE (NEGATIVE)
[2024-12-23 16:49] VITALS: BP 155/89; PULSE 79; RESP 16; TEMP 36.6; O2SAT 98
[2024-12-23 17:37] LABS: CT PCR NOT DETECTED (Not Detect.); NG PCR NOT DETECTED (Not Detect.)
[2024-12-23 17:43] LABS: Bacterial Vaginosis PCR POSITIVE (Negative); Candida Group PCR DETECTED (Not Detect); Candida glab krusei PCR NOT DETECTED (Not Detect); Trichomonas vaginalis PCR NOT DETECTED (Not Detect)
--- OUTSIDE RECORDS SUMMARY | 2024-12-23 18:14 | XMS_ITS | Encounter Summary ---
Author Organization [facility] Address [address] [place] [address] Care Team Providers Care Salt Plant Operator Name Role Phone Lakshmi Garcia MD Primary Care Provider [phone] Luna Barahona MD Unavailable Crista Espinosa MD Unavailable [phone] S[address] Unavailable Unavailable Bryan Quintana MD Unavailable [phone] Rashid Coreas MD Primary Care Provider [phone] Encounter Details Date Type Department Care Team (Late st Contact Info) Description 05/10/2022 Orders Only [facility] Department of Internal Medicine [address] [place] [id number] Rashid Coreas MD [address] [facility] OFFICE [place], [place] [id number] Social History Tobacco Use Types Packs/Day Years Used Date Smoking Tobacco: Never Smokeless Tobacco: Never Alcohol Use Standard Drinks/Week Comments Yes 0 (1 standard drink = 0.6 oz pur e alcohol) ocasional AUDIT-C Answer Date Recorded Q1: How often do you have a drink containing alc ohol? Monthly or less 08/17/2020 Q2: How many drinks containi ng alcohol do you have on a typical day when you are drinking? Not asked 08/17/2020 Q3: How often do you have si x or more drinks on one occasion? Not asked 08/17/2020 Hunger Vital Sign Answer Date Recorded Within the past 12 months, y ou worried that your food would run out before you got the money to buy more. Never true 01/26/20 20 Ran Out of Food in the Last Year Not on file 01/26/2020 PRAPARE - Transportation Answer Date Re corded In the past 12 months, has l ack of transportation kept you from medical appointments or from getting medications? No 01/26/2020 Lack of Transportation (Non-Medical) Not on file 01/26/2020 Comments No Sex and Gender Information Value Date Recorded Sex Assigned at Not on file Legal Sex Female 8:45 AM EST Gender Identity Not on file Sexual Orientation Not on file Occupation Industry Job Start Date Job End Date Not on file Not on file Not on file Not on file documented as of this encounter Plan of Treatment Not on file documented as of this encounter Visit Diagnoses Not on filedocumented in this encounter Care Teams Salt Plant Operator Relationship Specialty Start Date End Date Lakshmi Garcia MD [address] [place] [address]-[place] [address] PCP - General 11/28/17 06/07/22 Rashid Coreas MD [address] [place] [address] [place] [address] PCP - General Internal Medicine 06/08/22 Luna Barahona MD [address] [place] [address]-[employer] [place] [address] Obstetrics and Gynecology 04/13/21 Crista Espinosa MD [address] [place], [place] [address] [place] [address] Sports Recruiter Obstetrics and Gynecology 10/14/21 Sol Sarmiento [address] [place] [address] [employer] 10/14/21 Bryan Quintana MD [address] [facility]-[employer] [place] [address] Obstetrics and Gynecology 04/05/22 documented as of this encounter
--- OUTSIDE RECORDS SUMMARY | 2024-12-23 18:14 | XMS_ITS | Encounter Summary ---
Author Organization [facility] Address [address] [place] [address] Care Team Providers Care Client Relationship Manager Name Role Phone Lakshmi Garcia MD Primary Care Provider Luna Barahona MD Unavailable Crista Espinosa MD Unavailable [phone] Unavailable Unavailable Bryan Quintana MD Unavailable Rashid Coreas MD Primary Care Provider [phone] Encounter Details Date Type Department Care Team (Late st Contact Info) Description 03/16/2022 Orders Only [facility] Department of Internal Medicine [address] [place] [id number] Lakshmi Garcia MD [address] [place] [address]-INTERNAL MEDICINE [place] [id number] Chlamydia (Primary Dx) Social History Tobacco Use Types Packs/Day Years [...] file Not on file Not on file COVID-19 Exposure Response Date Recorded In the last 10 days, have yo u been in contact with someone who was confirmed or suspected to have Coronavirus/COVID-19? No / Unsure 03/15/2022 2:53 PM EDT documented as of this encounter Plan of Treatment Not on file documented as of this encounter Visit Diagnoses Diagnosis Chlamydia- Primary Other specified chlamydial infection, in conditions classified elsewhere and of unspecified site documented in this encounter Care Teams Client Relationship Manager Relationship Specialty Start Date End Date Lakshmi Garcia MD [address] [place] [address] [address] PCP - General 11/28/17 06/07/22 Rashid Coreas MD [address] [place] [address] [place] [address] PCP - General Internal Medicine 06/08/22 Luna Barahona MD [address] [place] [address]-[address] [place] [address] Obstetrics and Gynecology 04/13/21 Crista Espinosa MD [address] [place] [address] [place] [place] [address] Senior Foreman Obstetrics and Gynecology 10/14/21 Sol Sarmiento [address] [place] [address] Retail Department Manager Retail Department Manager 10/14/21 Bryan Quintana MD [address] [place] [address] [place] [address] Obstetrics and Gynecology 04/05/22 documented as of this encounter
--- OUTSIDE RECORDS SUMMARY | 2024-12-23 18:14 | XMS_ITS | Data Portability ---
Author Organization PRADIP [facility] [address] Address [address] [place] [address] Assessment No assessment recorded. Plan of Treatment Reminders Order Date Submit Date Provider Last Modified By Organization Details Last Modified Time Details Appointments None recorded. Lab urinalysis, dipstick 2022 023 [email or web address] _lolis burciaga, [address] [place] [address], [phone], 3 08:52:20 STI panel 2022 023 DEVON [facility], [address] [place] [address], [place], [address], 3 22:06:02 rapid SARS CoV 2 Ag, QL IA, respiratory specimen 2021 022 [email or web address] _lolis [facility], [address] [place] [address], [address], 2 09:17:23 Referral None recorded. Procedures None recorded. Surgeries None recorded. Imaging None recorded. Medication Orders metronidazo le 500 mg tablet 2022 023 DEVON [id number] [id number] [facility], [address], 3 08:52:22 Patient TargetsNo targets recorded. Patient Instructions Encounter Date Encounter Id Patient Instructions Last Modified By Organization Details Last Modified Time 08/25/2022 [id number] cough: care instructions Not available 08/25/2022 09:17:23 upper respirator y infection (cold): care instructions [email or web address] Not available 08/25/2022 09:17:23 rest, push fluids, continue mucinex [email or web address] Not available 08/25/2022 09:16:14 01/26/2023 [id number] bacterial vaginosis: care instructions [email or web address] Not available 01/26/2023 08:52:20 Reason for Referral None Reported. Results Created Date Observation Date Name Description Value Unit Range Abnormal Flag Note LastModifiedBy Organization Detail LastModifiedTime 08/25/20 22 08/25/2022 rapid SARS CoV 2 Ag, QL IA, respi rator y speci men Unknown Analyte Normal =Negat diana Not Available [facility] [address], [address], 08/25/2022 08:47:29 08/25/20 22 08/25/2022 rapid SARS CoV 2 Ag, QL IA, respi rator y speci men Unknown Analyte negati ve Not Available [facility] [address], [address], 08/25/2022 08:47:29 01/27/20 23 01/28/2023 NUSWA B BV+MY PRECISION ASSEMBLER+C T/GC/ TV BESSY atopobium vaginae LOW - 0 score Not Available [facility] ([facility]) [address] [place], [address], 01/31/2023 22:06:02 01/27/20 23 01/28/2023 NUSWA B BV+MY PRECISION ASSEMBLER+C T/GC/ TV BESSY bvab 2 LOW - 0 score Not Available [facility] ([facility]) [address] [place], [address], 01/31/2023 22:06:02 01/27/20 23 01/28/2023 NUSWA B BV+MY PRECISION ASSEMBLER+C T/GC/ TV BESSY megasphaera 1 LOW - 0 score Calcu late total score by amira arthur the 3 indiv idual bacte rial vagin osis (BV) marke r score s toget her. Total score is inter prete d as follo ws: Total score 0-1: Indic ates the absen ce of BV. Total score 2: Indet ermin ate for BV. Addit ional clini afia data shoul d be evalu ated to estab krunal a diagn osis. Total score 3-6: Indic ates the prese nce of BV. This test was devel oped and its perfo rmanc e roberto cteri stics deter mined by [facility]. It has not been clear ed or appro farhat by the Food and Drug Admin istra tion. Not Available [facility] ([facility]) [address] [place], [address], 01/31/2023 22:06:02 01/27/20 23 01/30/2023 NUSWA B BV+MY PRECISION ASSEMBLER+C T/GC/ TV BESSY mycoplasma genitalium BESSY POSITI VE negati ve abnormal Not Available [facility] ([facility]) [address] [place], [address], 01/31/2023 22:06:02 01/27/20 23 01/30/2023 NUSWA B BV+MY PRECISION ASSEMBLER+C T/GC/ TV BESSY mycoplasma hominis BESSY NEGATI VE negati ve Not Available [facility] ([facility]) [address] [place], [address], 01/31/2023 22:06:02 01/27/20 23 01/30/2023 NUSWA B BV+MY PRECISION ASSEMBLER+C T/GC/ TV BESSY ureaplasma spp BESSY POSITI VE negati ve abnormal Not Available [facility] ([facility]) [address] [place], [address], 01/31/2023 22:06:02 01/27/20 23 01/31/2023 NUSWA B BV+MY PRECISION ASSEMBLER+C T/GC/ TV BESSY trich vag by BESSY NEGATI VE negati ve Not Available [facility] ([facility]) [address] [place], [address], 01/31/2023 22:06:02 01/27/20 23 01/31/2023 NUSWA B BV+MY PRECISION ASSEMBLER+C T/GC/ TV BESSY chlamydia trachomatis, BESSY NEGATI VE negati ve Not Available [facility] ([facility]) [address] [facility], [place], [address], 01/31/2023 22:06:02 01/27/20 23 01/31/2023 NUSWA B BV+MY PRECISION ASSEMBLER+C T/GC/ TV BESSY neisseria gonorrhoeae, BESSY NEGATI VE negati ve Not Available [facility] ([facility]) [address] [facility], [place], [address], 01/31/2023 22:06:02 01/27/20 23 01/26/2023 urina lysis , dipst ick Unknown Analyte Normal = light yellow Not Available [address], [address], 01/26/2023 08:20:55 01/27/20 23 01/26/2023 urina lysis , dipst ick Unknown Analyte Yellow Not Available [address] [place] [address], [place], [address], 01/26/2023 08:20:55 01/27/20 23 01/26/2023 urina lysis , dipst ick Unknown Analyte Normal = clear Not Available [address] [place] [address], [address], 01/26/2023 08:20:55 01/27/20 23 01/26/2023 urina lysis , dipst ick Unknown Analyte Slight ly Cloudy Not Available [address], [address], 01/26/2023 08:20:55 01/27/20 23 01/26/2023 urina lysis , dipst ick Unknown Analyte Normal = negati ve Not Available mami booker [address], [place], [address], 01/26/2023 08:20:55 01/27/2001/26/2023 urina lysis , dipst ick Unknown Analyte Negati ve Not Available mami booker [address], [place], [address], 01/26/2023 08:20:55 01/27/20 23 01/26/2023 urina lysis , dipst ick Unknown Analyte Normal = Negati ve Not Available mami booker [address], [place], [address], 01/26/2023 08:20:55 01/27/20 23 01/26/2023 urina lysis , dipst ick Unknown Analyte Negati ve Not Available [facility] [address], [place], [address], 01/26/2023 08:20:55 01/27/20 23 01/26/2023 urina lysis , dipst ick Unknown Analyte Normal = Negati ve Not Available mami [address], [place], [address], 01/26/2023 08:20:55 01/27/2001/26/2023 urina lysis , dipst ick Unknown Analyte Negati ve Not Available [facility] [address], [place], [address], 01/26/2023 08:20:55 01/27/20 23 01/26/2023 urina lysis , dipst ick Unknown Analyte Normal = 1.010, 1.015, 1.020 Not Available mami booker [address], [place], [address], 01/26/2023 08:20:55 01/27/20 23 01/26/2023 urina lysis , dipst ick Unknown Analyte 1.030 Not Available lolis mcdonald[address], [place], [address], 01/26/2023 08:20:55 01/27/20 23 01/26/2023 urina lysis , dipst ick Unknown Analyte Normal = Negati ve Not Available mami booker [address], [place], [address], 01/26/2023 08:20:55 01/27/20 23 01/26/2023 urina lysis , dipst ick Unknown Analyte Negati ve Not Available mami booker [address], [place], [address], 01/26/2023 08:20:55 01/27/20 23 01/26/2023 urina lysis , dipst ick Unknown Analyte Normal = 6.5, 7.0, 7.5, 8.0 Not Available mami booker [address], [place], [address], 01/26/2023 08:20:55 01/27/20 23 01/26/2023 urina lysis , dipst ick Unknown Analyte 5.5 Not Available lolis [address], [place], [address], 01/26/2023 08:20:55 01/27/20 23 01/26/2023 urina lysis , dipst ick Unknown Analyte Normal = Negati ve Not Available mami [address], [place], [address], 01/26/2023 08:20:55 01/27/20 23 01/26/2023 urina lysis , dipst ick Unknown Analyte Trace Not Available [address]abel[address], [place], [address], 01/26/2023 08:20:55 01/27/20 23 01/26/2023 urina lysis , dipst ick Unknown Analyte Normal = 0.2, 1.0 Not Available 2099mami booker [address], [place], [address], 01/26/2023 08:20:55 01/27/20 23 01/26/2023 urina lysis , dipst ick Unknown Analyte 0.2 E.U./d L Not Available [address], [place], [address], 01/26/2023 08:20:55 01/27/20 23 01/26/2023 urina lysis , dipst ick Unknown Analyte Normal = Negati ve Not Available [address], [place], [address], 01/26/2023 08:20:55 01/27/20 23 01/26/2023 urina lysis , dipst ick Unknown Analyte Negati ve Not Available [address], [place], [address], 01/26/2023 08:20:55 01/27/20 23 01/26/2023 urina lysis , dipst ick Unknown Analyte Normal = Negati ve Not Available [address], [place], [address], 01/26/2023 08:20:55 01/27/20 23 01/26/2023 urina lysis , dipst ick Unknown Analyte Negati ve Not Available [address] [place] [address], [place], [address], 01/26/2023 08:20:55 Result Notes None recorded. Problems No Known Problems Procedures Surgical History Date Name Laterality Status Provider Name and Address Organization Details Recorded Time ligation of fallopian tube completed Mamta Belcherbe PA - [facility] 01/26/2023 08:21:05 Imaging Results None recorded. Procedure Notes None recorded. Medical Equipment None Reported. Allergies Allergen ID Allergen Name Allergen Category Reaction Reaction Severity Criticality Documentation Date Start Date Code Code System Note Provider Name and Address Organization Details Recorded Time 30945 Substance with sulfonami de structure and antibacte rial mechanism of action (substanc e) medicatio n rash Not available Not available 08/25/2022 94457 [id number] SNOMED TOM ANTHONYJERILYN tovar PA - [facility] 2 08:44:28 Medications Name Sig Start Date Stop Date Status Note LastModified by Organization Details LastModified Time medroxyprog esterone 10 mg tablet TAKE 1 TABLET BY MOUTH TWICE A DAY 08/25 completed Not Available Not Available Not Available norgestimat e 0.25 mg-ethinyl estradiol 0.035 mg tablet TAKE 1 TABLET BY MOUTH EVERY DAY 08/25 completed Not Available Not Available Not Available doxycycline hyclate 100 mg capsule Take 1 capsule twice a day by oral route for 7 days. 2022 active Not Available Not Available Not Avai lable fluconazole 150 mg tablet TAKE 1 TABLET BY MOUTH ONCE FOR 1 DOSE. REPEAT IN 72 HOURS IF STILL SYMPTOMAT IC 08/25 completed Not Available Not Available Not Available ondansetron HCl 8 mg tablet TAKE 1 TABLET BY MOUTH EVERY 8 HOURS NEEDED FOR NAUSEA OR VOMITING FOR UP TO 7 DAYS. 08/25 completed Not Available Not Available Not Available meloxicam 15 mg tablet TAKE 1 TABLET (15 MG TOTAL) BY MOUTH DAILY. 08/25 completed Not Available Not Available Not Available metronidazo le 0.75 % (37.5 mg/5 gram) vaginal gel APPLY VAGINALLY EVERY NIGHT FOR 5 NIGHTS. THEN ONCE A WEEK FOR 6 MONTHS 08/25 completed Not Available Not Available Not Available moxifloxaci n 400 mg tablet Take 1 tablet every day by oral route for 7 days. 2022 active Not Available Not Available Not Avai lable metronidazo le 500 mg tablet Take 1 tablet twice a day by oral route for 7 days. 2022 active Not Available Not Available Not Avai lable ondansetron 8 mg disintegrat ing tablet TAKE 1 TABLET BY MOUTH EVERY 8 HOURS NEEDED FOR NAUSEA OR VOMITING FOR UP TO 7 DAYS. 08/25 completed Not Available Not Available Not Available terbinafine HCl 250 mg tablet TAKE 1 TABLET BY MOUTH EVERY MORNING 08/25 completed Not Available Not Available Not Available meclizine 25 mg tablet TAKE 1 TABLET BY MOUTH THREE TIMES A DAY NEEDED FOR DIZZINESS 08/25 completed Not Available Not Available Not Available ondansetron 4 mg disintegrat ing tablet Place 1 tablet 3 times a day by transling ual route as needed for 5 days. 2022 active Not Available Not Available Not Avai lable naproxen 500 mg tablet TAKE 1 TABLET BY MOUTH TWICE A DAY NEEDED FOR MILD PAIN(LEVE L 1-3) 08/25 completed Not Available Not Available Not Available 1.5/30 (28) 1.5 mg-30 mcg (21)/75 mg (7) tablet TAKE TWO PILL ORALLY EACH DAY FOR 3 DAYS, THEN ONE PILL A DAY. 08/25 completed Not Available Not Available Not Available Flagyl 01/26 completed Not Available Not Available Not Available Vitals Date Recorded Body height Body mass index (BMI) Body weight Oxygen saturation Oxygen saturation in Arterial blood by Pulse oximetry Heart rate Respiratory rate Body temperature Pain severity - 0-10 verbal numeric rating [Score] - Reported Systolic blood pressure Diastolic blood pressure Provider Name and Address Organization Details Last Updated DateTime 3 167.64 cm 33.2 kg/m2 14175.0 3 g 100 % 100 % 60 /min 20 /min 98 [degF] 3 130 mm[Hg] 85 mm[Hg] Mamta Nazario PA - [facility] 3 08:23:49 Date Recorded Body height Body mass index (BMI) Body weight Oxygen saturation Oxygen saturation in Arterial blood by Pulse oximetry Heart rate Pain severity - 0-10 verbal numeric rating [Score] - Reported Respiratory rate Body temperature Systolic blood pressure Diastolic blood pressure Provider Name and Address Organization Details Last Updated DateTime 2 167.64 cm 33.2 kg/m2 54983.0 3 g 100 % 100 % 61 /min 0 18 /min 97.9 [degF] 129 mm[Hg] 85 mm[Hg] TOM SANTANA PA - [facility] 08:47:10 Social History Question Answer Notes LastModified by Organizat ion Details LastModified Time Tobacco Smoking Status Never Smoker TOM SANTANA null, PA - [facility] 08/25/2022 08:45:34 What Is Your Level Of Alcohol Consumption? None Information not available 08/25/2022 Are You Currently Employed? No Information not available 08/25/2022 What Is The Highest Grade Or Level Of School You Have Completed Or The Highest Degree You Have Received? [id number] Information not available 08/25/2022 What Is Your Water Source? City Information not available 08/25/2022 What Is Your Heat Source? Electric [email or web address] Information not available 08/25/2022 Have You Had Direct Contact, Or Contact During Intimacy, With Monkeypox Rash, Scabs, Or Body Fluids From A Person With Monkeypox? No Information not available 08/25/2022 What Is Your Relationship Status? Unknown Information not available 08/25/2022 Do You Use Any Illicit Or Recreational Drugs? No Information not available 08/25/2022 Have You Recently Traveled Abroad? No Information no t available 08/25/2022 Are You Currently In School? No Information not available 08/25/2022 Do You Or Have You Ever Used Any Other Forms Of Tobacco Or Nicotine? No [email or web address] Information not available 08/25/2022 Sex: Unknown Functional Status None recorded. Mental Status None recorded. Family History Relationship Description Onset Age of this Age Resolved Age Notes LastModified by Organization Details LastModified Time Father No current problems or disability [email or web address] Not available 08/25/2022 08:45:22 Mother No current problems or disability [email or web address] Not available 08/25/2022 08:45:22 Medical History No medical history recorded. Gynecological History Statement/Question Response Date of LMP 01/16/2023 Is there any chance of ? No LMP Approximate Obstetrics History GPAL:G 0 P 0 0 0 0 Past Encounters Encounter ID Performer Location Encounter Start Date Encounter Closed Date Diagnosis/Indication Diagnosis SNOMED-CT Code Diagnosis ICD10 Code Diagnosis Note [id number] [address] [place] [address] 09/21/2021 15:44:11 09/21/2021 16:31:55 [id number] [address] [place] [address] 09/27/2021 15:42:55 09/27/2021 18:39:05 [id number] [address] [place] [address] 12/17/2021 09:30:28 12/17/2021 12:19:40 [id number] PRADIP CANTU [address] [place] [address] 08/25/2022 08:17:05 08/25/2022 09:28:51 Cough 35120165 R05.9 Upper resp iratory infection 04696528 J06.9 [id number] Car Vaughn [place] [address] [place] [address] 01/26/2023 08:06:59 01/26/2023 08:51:34 Acute vaginitis 39018838 N76.0 Health Concerns Section Related Observation LastModified by Organization Detai ls LastModified Time None Recorded Concern Status LastModified by Organization Details LastModified Time None Recorded Advance Directives Directive None Recorded Payers Encounter Date Sequence Insurance Name Policy Number Policy Nesbitt Covered Member ID Nesbitt Member ID Guarantor Name 09/21/2021 1 [place] John Marino Jr [id number] Radha Marino 09/27/2021 1 [place] John Marino Jr [id number] Radha Marino 12/17/2021 1 [place] John Marino Jr [id number] Radha Marino 08/25/2022 1 [place] John Marino [id number] Radha Jamila 01/26/2023 1 [employer] [id number] Radha Marino [id number] Radha Marino Notes Date Note Type Note Provider Name and Address Organization Details Recorded Time 08/25/2022 text/html CoughReported bypatient.Quality:i ntermittent; symptoms worse with lying down Severity:moderate Duration:constant; 5 days Associated Symptoms:no fever; no chills; no nausea;post nasal drip 5 day hx of sore throat, runny nose, headache. otc mucinex not helping. 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
--- OUTSIDE RECORDS SUMMARY | 2024-12-23 18:14 | XMS_ITS | Clinical Summary ---
Author Organization [facility] Address [address] [place] [address] Care Team Providers Care Certified Appliance Service Technician Name Role Phone Luna Barahona MD Unavailable Crista Espinosa MD Unavailable [phone] Sol Sarmiento Unavailable Unavailable Byran Quintana MD Unavailable [phone] Rashid Coreas MD Primary Care Provider [phone] Allergies Active Allergy Reactions Criticality Noted Date Comments Cephalexin GI intolerance 10/15/2018 Meloxicam Swelling,Other (see comments) 01/11/2022 paresthesias Sulfa (Sulfonamide Antibiotics) 02/05/2017 Other reaction(s): Rash Medications metroNIDAZOLE (FLAGYL) 500 mg tablet TAKE 1 TABLET BY MOUTH IN THE MORNING AND 1 AT BEDTIME FOR 7 DAYS 14 tablet 09/21/2022 Active Active Problems Problem Noted Date Diagnosed Date Nausea 08/17/2020 Overview (08/17/2020): Added automatically from request for surgery [id number] Epigastric pain 08/17/2020 Overview (08/17/2020): Added automatically from request for surgery [id number] Dyspepsia 08/17/2020 Overview (08/17/2020): Added automatically from request for surgery [id number] Menorrhagia with regular cycle 01/25/2018 Overview (01/25/2018): Added automatically from request for surgery [id number] Fibromyalgia 01/16/2018 ADD (attention deficit disorder) 01/16/2018 Assessment & Plan (11/27/2018 2:04 PM EDT): Patient unable to tolerate side effects of stimulant medication. Would consider intuniv, but she has a history of developing hypotension and dizziness in response to medications. She is open to trying to low-dose wellbutrin at this time. Paperwork for FMLA filled out so she can have additional time to perform tasks. Educated patient that she was last seen 8 months ago, and she needs to be seen every 3 months. Told patient that if she misses subsequent appointments, her FMLA paperwork will not be filled out. She acknowledges this. -Start wellbutrin 150 mg po daily -Discontinue straterra -Will not fill out FMLA if she no-shows subsequent appointments Assessment & Plan (04/10/2018 4:38 PM EDT): Reports good response to Strattera, but believes there is room for improvement. Also requests FMLA paperwork to be filled out so that her employer can give her extra time to complete tasks. -Increase strattera to 60 mg po daily from 40 mg -FMLA paperwork filled out Family History Medical History Relation Comments Pancreatic cancer Father's Sister Esophageal cancer Maternal Grandfather Diabetes Maternal Grandmother Multiple myeloma Maternal Grandmother Lung cancer Paternal Grandfather Diabetes Paternal Grandmother Relation Status Comments Father Alive Father's Sister Maternal Grandfather Maternal Grandmother Mother Alive Paternal Grandfather Paternal Grandmother Social History Tobacco Use Types Packs/Day Years [...] file Not on file Not on file Last Filed Vital Signs Vital Sign Reading Time Taken Comments Blood Pressure 136/85 07/05/2022 3:48 PM EDT Pulse 78 07/05/2022 3:48 PM EDT Temperature 36.1 ??C (97 ??F) 06/08/2022 9:43 AM EDT Respiratory Rate 18 01/06/2022 8:14 PM EDT Oxygen Saturation 99% 06/08/2022 9:43 AM EDT Inhaled Oxygen Concentration - - Weight 92.1 kg (203 lb) 07/05/2022 3:48 PM EDT Height 167.6 cm (5' 6 ) 01/19/2022 1:39 PM EDT Body Mass Index 32.77 01/19/2022 1:39 PM EDT Plan of Treatment Health Maintenance Due Date Last Done Comments Breast Cancer Screening 1981 DTaP,Tdap,and Td Vaccines (1 - Tdap) 1999 Hepatitis B Vaccines (1 of 3 - 19+ 3-dose series) 2000 Pap Smear 06/18/2022 06/18/2019 COVID-19 Vaccine ( - 2023- season) 2024 Cervical Cancer Screening 06/18/2024 HPV/Cotest 06/18/2024 06/18/2019 Influenza Vaccine (Season Ended) 2025 Zoster Vaccines (1 of 2) 2031 Hepatitis C Screening Completed 06/08/2022 , 04/13/2022, 03/15/2022, Additional history exists HIV Screening Completed 08/29/2022, 05/19, 04/13/2022, Additional history exists HPV Vaccines Aged Out No longer eligi ble based on patient's age to complete this topic Hepatitis A Vaccines Aged Out No long er eligible based on patient's age to complete this topic MMR Vaccines Aged Out No longer eligi ble based on patient's age to complete this topic Meningococcal Vaccine Aged Out No lisa amaris eligible based on patient's age to complete this topic Pneumococcal Vaccine: Pediatrics (0 to 5 Years) and At-Risk Patients (6 to 49 Years) Aged Out No longer eligible based on patient's age to complete this topic Medical Devices Implanted Type Area Commercial Green Building Architect Device Identifier Shelf Expiration Date Model / Serial / Lot 8mm Falope-Ring Band Applicator Kit, Dual Incision W/O Trocar, Disposable - [id number] Implanted:02/15 at [facility] (Quantity not on file) Surgical Implants - Men & Women's Pelvic Health [facility] [place] - Urology/Gynecolo gy/[employer] (formerly [employer]) 08/23/2022 [id number] / / [id number] Procedures Procedure Name Priority Date/Time Associated Diagnosis Comments HIV 1/2 ANTIGEN/ANTIBODY,FO URTH GENERATION W/RFL (Q) Routine 08/29/2022 12:40 PM EST BV (bacterial vaginosis) HEPATITIS C ANTIBODY Routine 06/08/2022 11:08 AM EDT Wellness examination PAP TEST Routine 06/18/2019 2:12 PM EDT Encounter for gynecological examination without abnormal finding HPV, HIGH RISK, NAAT, W/ REFLEX TO GENOTYPES 16 AND 18/45 Routine 06/18/2019 2:12 PM EDT Encounter for gynecological examination without abnormal finding from Last 3 Months or Most Recently Relevant to Health Maintenance Results * HIV COMBO ANTIGEN ANIBODY w/ REFLEX (Q) (08/29/2022 12:40 PM EST) Pathologist [employer] [facility] HIV AG/AB, 4TH GEN NON-REACT ANDRÉS NON-REACT ANDRÉS ICEX-ICEX Comment: HIV-1 antigen and HIV-1/HIV-2 antibodies were not detected. There is no laboratory evidence of HIV infection. PLEASE NOTE: This information has been disclosed to you from records whose confidentiality may be protected by state law. ??If your state requires such protection, then the state law prohibits you from making any further disclosure of the information without the specific written consent of the person to whom it pertains, or as otherwise permitted by law. A general authorization for the release of medical or other information is NOT sufficient for this purpose. ?? For additional information please refer to http://education.Quick Hang/faq/HCY332 (This link is being provided for informational/ educational purposes only.) The performance of this assay has not been clinically validated in patients less than 2 years old. Blood 08/29/2022 12:4 0 PM EST 08/29/2022 12:40 PM EST Luna Barahona MD [facility] LAB ORDERABLES Final R esult [facility] [address] [place] [address], [place] [address] * Hepatitis C antibody (06/08/2022 11:08 AM EDT) [facility] Hepatitis C Antibody Negative Negative 06/08/2022 2:00 PM EDT [facility] Comment:Anti-HCV (HCVAb) Not Detected. Patient is presumed not to be infected with HCV. The possibility of exposure to HCV cannot be excluded. Blood Venous blood specimen / Unknown Venipuncture / Unknown 06/08/2022 11:08 AM EDT 06/08/2022 11:08 AM EDT Rashid Coreas MD LAB BLOOD ORDERABLES NO STA T Final Result Performing Organization Address City/[facility]/ZIP Co de Phone Number [facility] [address] [place] [address], [place] [phone] * HPV, high risk, NAAT (06/18/2019 2:12 PM EDT) [facility] HPV, high-risk Negative Negative, Indeterminate 06/19/2019 11:28 AM EDT [facility] Odin biopsy (procedure) Cervix uteri structure / Unknown Non-blood Collection / Unknown 06/18/2019 2:12 PM EDT 06/18/2019 3:31 PM EDT Narrative [facility] - 06/19/2019 11:28 AM EDT Negative results indicate Human Papillomavirus (HPV) E6/E7 viral messenger RNA of the 14 high-risk types of HPV was not detected. NOTE: Negative results may occur with HPV E6/E7 mRNA concentrations that are below the pre-set limit of detection threshold for this assay. Results of this test should only be interpreted in conjunction with information available from the clinical evaluation of the patient and patient history. Luna Barahona MD LAB MICROBIOLOGY - GENERAL ORDER KOURTNEY Final Result Performing Organization Address City/State/[facility] Co de Phone Number [facility] [address] [place] [address], * Pap Test (06/18/2019 2:12 PM EDT) [facility] Case Report Cytology ?Case: [id number] ? Authorizing Provider: ??Luna Barahona MD ?Collected: ? 06/18/2019 1412 ? Ordering Location: ? [facility] Department of Received: ?06/19/2019 1021 ? Women's Health ? First Screen: ?Aleksandra Liang BS CT ? (ASCP) ? Specimen: ?Cytopathology, screening PAP test, Cervix ? 06/20/2019 4:36 PM EDT [facility] LMP 06/01/2019 06/20/2019 4:36 PM EDT [facility] Interpretation Negative for intraepithelial lesion or malignancy 06/20/2019 4:36 PM EDT [facility] at 1636 EDT Specimen Adequacy Satisfactory for evaluation, endocervical/pelletier sformation zone component present 06/20/2019 4:36 PM EDT [facility] Other Findings 06/20/2019 4:36 PM EDT [facility] Comment:Endometrial cells an d blood present. Specimen Processing Thin Prep pap with automatic imaging and manual rescreen or review. 06/20/2019 4:36 PM EDT [facility] Educational Note The Pap test is a screening test which carries an inherent false negative rate. These test results should be correlated with the patient's clinical findings and history. 06/20/2019 4:36 PM EDT [facility] Embedded Images 9 4:36 PM EDT [facility] High Risk HPV Nucleic Acid Detection Negative 06/20/2019 4:36 PM EDT [facility] Comment: Negative results indicate HPV E6/E7 mRNA of the 14 high-risk types of HPV was not detected. NOTE: Negative results may occur with HPV E6/E7 mRNA concentrations that are below the pre-set limit of detection threshold for this assay. Results of this test should only be interpreted in conjunction with information available from the clinical evaluation of the patient and patient history. The APTIMA HPV Assay is a target amplification nucleic acid probe test for the in vitro qualitative detection of E6/E7 viral messenger RNA (mRNA), from 14 high- risk HPV types of human papillomavirus (HPV) (16/18/31/33/35/39/45/51/52/56/58/59/66/68) in cervical specimens collected in ThinPrep Pap Test vials containing PreservCyt Solution. The APTIMA HPV Assay does not discriminate between the 14 high-risk types. ??If clinically indicated, positive samples may be additionally tested with the APTIMA HPV 16 18/45 Genotype Assay to assess the presence or absence of high- risk HPV genotypes 16, 18 and/or 45. These results are not intended to be the sole means for clinical diagnosis and should always be correlated with other patient findings, including cytology, histology, and clinical evaluation. APTIMA HPV Assay assay was performed and reported by the Microbiology Laboratory, Department of Pathology and Laboratory Medicine at [facility] Odin biopsy (procedure) Cervix uteri structure / Unknown Non-blood Collection / Unknown 06/18/2019 2:12 PM EDT 06/19/2019 10:21 AM EDT us Luna Barahona MD LAB PATHOLOGY/CYTOLOGY ORDERABLE S Final Result [facility] [address] [place] [address] [phone] from Last 3 Months or Most Recently Relevant to Health Maintenance Insurance [employer] Advance Directives For more information, please contact: [phone] Documents on File Type Date Recorded Patient Bender Hand Expl anation Advance Directives 09/14/2020 10:00 AM Advance Directives 02/28/2018 2:26 PM Care Teams Certified Appliance Service Technician Relationship Specialty Start Date End Date Rashid Coreas MD [address] [place] [address] PCP - General Internal Medicine 06/08/22 Luna Barahona MD [address] [place] [address] [id number] Obstetrics and Gynecology 04/13/21 Crista Espinosa MD [address] [place] [address] [place], [place] [address] Assistant Editor Obstetrics and Gynecology 10/14/21 Sol Sarmiento [address] [place] [address] Beam Saw Operator Beam Saw Operator 10/14/21 Bryan Quintana MD [address] [facility] [place] [address] Obstetrics and Gynecology 04/05/22
--- OUTSIDE RECORDS SUMMARY | 2024-12-23 18:14 | XMS_ITS | Clinical Summary ---
Author Organization [facility] Address [address] [place] [address] Phone Care Team Providers Care Diesel Trailer Mechanic Name Role Phone Ina Edge MD Primary Care Provider [phone] Allergies Active Allergy Reactions Criticality Noted Date Comments Sulfa (Sulfonamide Antibiotics) Hives 11/16 Medications albuterol HFA (PROAIR HFA ; PROVENTIL HFA ; VENTOLIN HFA) 90 mcg/actuation inhaler Inhale 2 puffs by mouth every 4 (four) hours if needed. 07/14/2024 Active Junel FE .5, 28, 1.5 mg-30 mcg (21)/75 mg (7) per tablet Take 1 tablet by mouth 1 (one) time each day. 01/15/2024 Active terbinafine (LamISIL) 250 mg tablet Take 1 tablet (250 mg total) by mouth 1 (one) time each day. 90 each 10/22/2024 Active Active Problems Problem Noted Date Diagnosed Date Endometriosis 08/13/2024 Adenomyosis 08/13/2024 Fibromyalgia 06/22/2024 ADD (attention deficit disorder) 06/22/2024 Tonsillar enlargement 09/20/2009 Encounters Date Type Department Care Team Description 10/22/2024 2:15 PM EST Office Visit Orthopedic Surgery [facility] 250 175 [facility] [address] [place] [phone] Bryan Sanders, DPM Onychomycosis 10/10/2024 11:00 AM EST Treatment [facility] [address] [address] Loren Rain, PT Left hip pain (Primary Dx) 10/08/2024 1:00 PM EST - 10/08/2024 11:59 PM EST Hospital Encounter CT Scan - [address] [phone] Lung nodule Discharge Disposition: Home or Self Care 10/07/2024 4:00 PM EST Office Visit Adult Medicine [address] [address] Ina Edge MD Lung nodule (Primary Dx); Chronic cough; Wheezing 10/07/2024 8:30 AM EST Treatment [address] [address] Leland Salinas, JANITOR HELPER Left hip pain (Primary Dx) 09/30/2024 9:00 AM EST Treatment [address] [phone] Leland Salinas, JANITOR HELPER Left hip pain (Primary Dx) 09/26/2024 12:00 PM EST Treatment [address] [address] Alfredo Hollins, JANITOR HELPER Left hip pain (Primary Dx) from Last 3 Months Immunizations Name Administration Dates Next Due PPD Test 12/17/2006 Td Tetanus diptheria (Tdvax) 7yo and older 12/31 Tdap Tetanus diptheria acell ular pertussis (Boostrix; Adacel) 7yo and older 08/21/2023,04/29/2010 Surgical History Surgery Date Site/Laterality Comments HAND SURGERY 07/17/1991 PROCEDURE: HISTORICAL HAND SURGERY TUBAL LIGATION 02/2018 PROCEDURE: HISTORICAL TUBAL LIGATION EYE SURGERY Bilateral PROCEDURE: HISTORICAL EYE SURGERY; COMMENT: 12/2015, 12/2016, 11/2017 - blephoplasty Family History Medical History Relation Name Comments Hypertension Father Esophageal cancer Maternal Grandfather Multiple myeloma Maternal Grandmother Other: fibromyalgia Mother Diabetes Paternal Grandmother Diabetes Sister 1 Other: fibromyalgia Sister 2 Relation Name Status Comments Aunt pancreatic Brother Alive 8 Father Alive healthy Maternal Grandfather esophag eal CA Maternal Grandmother multipl e myeloma Mother Alive healthy Paternal Grandfather Paternal Grandmother Sister 1 Alive 9 Sister 2 Alive Social History Tobacco Use Types Packs/Day Years Used Date Smoking Tobacco: Never Smokeless Tobacco: Never Tobacco Cessation:Counseling Given: Not Answered Alcohol Use Standard Drinks/Week Comments Yes 0 (1 standard drink = 0.6 oz pur e alcohol) Comments No Sex and Gender Information Value Date Recorded Sex Assigned at Female 08/13/2024 2:54 PM EST Legal Sex Female 7:58 AM EST Gender Identity Female 08/13/2024 2:54 PM EST Sexual Orientation Not on file Obstetrics History Last Filed Vital Signs Vital Sign Reading Time Taken Comments Blood Pressure 120/70 10/07/2024 4:18 PM EST Pulse 100 10/07/2024 4:18 PM EST Temperature 36.6 ??C (97.8 ??F) 10/07/2024 4:18 PM ES T Respiratory Rate 12 10/07/2024 4:18 PM EST Oxygen Saturation - - Inhaled Oxygen Concentration - - Weight 109 kg (241 lb) 10/22/2024 2:26 PM EST Height 165.1 cm (5' 5 ) 10/07/2024 4:18 PM EST Body Mass Index 40.1 10/07/2024 4:18 PM EST Plan of Treatment Upcoming Encounters Date Type Department Care Team (Late st Contact Info) Description 01/02/2025 12:30 PM EDT Ancillary Procedure Pulmonolgy - [address] [place] [phone] Shahrzad Borrego 01/20/2025 4:30 PM EDT Office Visit Adult Medicine [address] [phone] Ina Edge MD [address] [place] [address] Health Maintenance Due Date Last Done Comments Breast Cancer Screening 1981 Hepatitis B Vaccines (1 of 3 - 19+ 3-dose series) 2000 Social Influencers of Health Screening 04/08/2024 COVID-19 Vaccine (1 - 2023-2 5 season) 2024 Cervical Cancer Screening: HPV 06/18/2024 06/18/2019 Influenza Vaccine (Season Ended) 2025 Depression Screening 08/13/2025 08/13/2024 Cholesterol Screening (Lipid Panel) 08/22/2029 08/22/2024, 11/29/2023 DTaP,Tdap,and Td Vaccines (4 - Td or Tdap) 08/21/2033 08/21/2023, 04/29/2010, 12/31/2006 Hepatitis C Screening Completed 06/08/2022 , 06/08/2022 HIV Screening Completed 08/29/2022 HIB Vaccines Aged Out No longer eligi ble based on patient's age to complete this topic HPV Vaccines Aged Out No longer eligi ble based on patient's age to complete this topic Hepatitis A Vaccines Aged Out No long er eligible based on patient's age to complete this topic IPV Vaccines Aged Out No longer eligi ble based on patient's age to complete this topic MMR Vaccines Aged Out No longer eligi ble based on patient's age to complete this topic Meningococcal ACWY Vaccine Aged Out N o longer eligible based on patient's age to complete this topic Meningococcal B Vaccine Aged Out No l onger eligible based on patient's age to complete this topic Pneumococcal Vaccine: Pediatrics (0 to 5 Years) and At-Risk Patients (6 to 64 Years) Aged Out No longer eligible b ased on patient's age to complete this topic RSV Immunization Patients Under 20 months Aged Out No longer eligible b ased on patient's age to complete this topic Varicella Vaccines Aged Out No longer eligible based on patient's age to complete this topic Goals Goal Patient Goal Type Associated Problems Recent Progress Patient-Stated? Author STG in 4-5 weeks General No Loren Rain, PT Note: Short Term Goals 1. Initiate home exercise program. 2. Pain will be improved by 2-3 points on VAS. 3. Patient will improve hip/knee strength by 1/3 grade on manual muscle testing. 4. Patient will improve hip flexion ROM to 90 deg or better. LTG 8 weeks General Loren Wilkes, PT Note: Residential Goals 1. Patient will be independent with home exercise program to maintain therapeutic gains. 2. Patient will be able to turn while walking without pain or limitation 3. Patient will be able to negotiate steps with min to no pain or limitation Procedures Procedure Name Priority Date/Time Associated Diagnosis Comments CT CHEST WO CONTRAST Routine 10/08/2024 1:11 PM EST Lung nodule LIPID PANEL WITH REFLEX TO DIRECT LDL Routine 08/22/2024 9:48 AM EST PE (physical exam), annual HIV SCREENING Routine 08/29/2022 HEPATITIS C SCREENING Routine 06/08/2022 from Last 3 Months or Most Recently Relevant to Health Maintenance Results * CT Chest wo Contrast (10/08/2024 1:11 PM EST) Anatomical Region Laterality Modality Body Computed Tomogra phy 10/08/2024 6:40 PM EST Impressions 10/08/2024 6:48 PM EST Essentially unremarkable exam. No pulmonary nodules are identified. Perhaps chest x-ray finding was due to pulmonary vessel on end or summation artifact. -------- FINAL REPORT -------- Dictated By: Connie Huggins Dictated Date: 10/08/2024 18:40 ET Assigned Physician: Connie Huggins Reviewed and Electronically Signed By: Connie Huggins Signed Date: 10/08/2024 18:48 ET Workstation ID: [id number] Transcribed By: Self Edit Transcribed Date: 10/08/2024 18:40 ET Narrative 10/08/2024 6:[address] CHEST WO CONTRAST HISTORY: Abnormal x-ray. Lung nodule less than 1 cm. 5 mm nodule overlying a midthoracic vertebral body was noted on outside chest x-ray at the [facility] emergency room on 09/08/2024. TECHNIQUE: Multiple axial images are obtained from the thoracic inlet through the upper abdomen. COMPARISON: The dictated report from the outside chest x-ray is available for review. However, the images are not currently available for review. FINDINGS: ?? The lungs are clear. There is no pleural effusion, infiltrate, pneumothorax, cardiomegaly, or pericardial effusion. No lymphadenopathy is seen. The partially visualized upper abdominal organs are unremarkable. No suspicious bone lesions seen. Minor degenerative change of the spine. Procedure Note Connie Huggins MD - 10/08/2024 CT CHEST WO CONTRAST HISTORY: Abnormal x-ray. Lung nodule less than 1 cm. 5 mm nodule overlyinga midthoracic vertebral body [facility] TECHNIQUE: Multiple axial images are obtained from the thoracic inletthrough the upper abdomen. COMPARISON: The dictated report from the outside chest x-ray is availablefor review. However, the images are not currently available for review. FINDINGS: The lungs are clear. There is no pleural effusion, infiltrate,pneumothorax, cardiomegaly, or pericardial effusion. No lymphadenopathy isseen. The partially visualized upper abdominal organs are unremarkable. No suspicious bone lesions seen. Minor degenerative change of the spine. IMPRESSION: Essentially unremarkable exam. No pulmonary nodules are identified.Perhaps chest x-ray finding was due to pulmonary vessel on end orsummation artifact. -------- FINAL REPORT -------- Dictated By: Connie Huggins Dictated Date: 10/08/2024 18:40 ET Assigned Physician: Connie Huggins Reviewed and Electronically Signed By: Connie Huggins Signed Date: 10/08/2024 18:48 ET Workstation ID: [id number] Transcribed By: Self Edit Transcribed Date: 10/08/2024 18:40 ET us Ina Edge MD IM CT PROCEDURES Final Result * (ABNORMAL) Lipid panel with reflex to direct LDL (08/22/2024 9:48 AM EST) Cholesterol 211(H) 0 - 200 mg/dL LAB CHEMISTRY METHOD 08/22/2024 12:37 PM [facility] Triglycerides 128 0 - 150 mg/dL LAB CHEMISTRY METHOD 08/22/2024 12:37 PM [facility] HDL 63 >=40 mg/dL LAB CHEMISTRY METHOD 08/22/2024 12:37 PM [facility] LDL Calculated 122(H) 0 - 100 mg/dL LAB CHEMISTRY METHOD 08/22/2024 12:37 PM [facility] VLDL Cholesterol Mike 25.6 mg/dL LAB CHEMISTRY METHOD 08/22/2024 12:37 PM [facility] Non HDL Chol. (LDL+VLDL) 148(H) <145 mg/dL LAB CHEMISTRY METHOD 08/22/2024 12:37 PM [facility] Chol/HDL Ratio 3.3 0.0 - 4.4 LAB CHEMISTRY METHOD 08/22/2024 12:37 PM [facility] Blood Venous blood specimen / Unknown Venipuncture / Unknown 08/22/2024 9:48 AM EST 08/22/2024 9:48 AM EST Ina Edge MD LAB BLOOD ORDERABLES Final Resul t [facility] [address] [place] [address], * HIV Screening (08/29/2022) HIV Screening abstracted us Historical Provider HEALTH MAINTENANCE Final Result * Hepatitis C Screening (06/08/2022) Hepatitis C Screening abstracted us Historical Provider HEALTH MAINTENANCE Final Result from Last 3 Months or Most Recently Relevant to Health Maintenance Care Teams Diesel Trailer Mechanic Relationship Specialty Start Date End Date Ina Edge MD [address] [place] [address] PCP - General Internal Medicine 07/31/24
--- OUTSIDE RECORDS SUMMARY | 2024-12-23 18:14 | XMS_ITS | Encounter Summary ---
Author Organization [facility] Address [address] [place] [address] Care Team Providers Care Geriatric Psychiatrist Name Role Phone Lakshmi Garcia MD Primary Care Provider Luna Barahona MD Unavailable Crista Espinosa MD Unavailable [phone] Sarm[address] Unavailable Unavailable Bryan Quintana MD Unavailable Rashid Coreas MD Primary Care Provider [phone] Encounter Details Date Type Department Care Team (Late st Contact Info) Description 04/14/2022 Orders Only [facility] Department of Internal Medicine [address] [place] [address] Lakshmi Garcia MD [address] [place] [address]-INTERNAL MEDICINE [place] [id number] Social History Tobacco Use Types Packs/Day Years [...] on filedocumented in this encounter Care Teams Geriatric Psychiatrist Relationship Specialty Start Date End Date Lakshmi Garcia MD [address] [place] [address]-[place] [address] PCP - General 11/28/17 06/07/22 Rashid Coreas MD [address] [place] [address] [place] [address] PCP - General Internal Medicine 06/08/22 Luna Barahona MD [address] [place] [address]-[place] [phone] Obstetrics and Gynecology 04/13/21 Crista Espinosa MD [address] [place] [address]PLATFORM ARCHITECT [place], [place] [address] Net Development Manager Obstetrics and Gynecology 10/14/21 Sol Sarmiento [address] [place] [address] Concierge Concierge 10/14/21 Bryan Quintana MD [address] [facility]-[place] [address] Obstetrics and Gynecology 04/05/22 documented as of this encounter
--- OUTSIDE RECORDS SUMMARY | 2024-12-23 18:14 | XMS_ITS | Encounter Summary ---
Author Organization [facility] Address [address] [place] [address] Care Team Providers Care Driver Operator Name Role Phone Luna Barahona MD Unavailable Crista Espinosa MD Unavailable [phone] Unavailable Unavailable Bryan Quintana MD Unavailable [phone] Rashid Coreas MD Primary Care Provider [phone] Encounter Details Date Type Department Care Team (Late st Contact Info) Description 06/23/2022 Orders Only [facility] Department of Internal Medicine [address] [place] [address] Rashid Coreas MD [address] [facility] [place] [address] Social History Tobacco Use Types Packs/Day Years [...] suspected to have Coronavirus/COVID-19? No / Unsure 06/08/2022 9:32 AM EDT documented as of this encounter Plan of Treatment Not on file documented as of this encounter Visit Diagnoses Not on filedocumented in this encounter Care Teams Driver Operator Relationship Specialty Start Date End Date Rashid Coraes MD [address] [facility] [place] [address] PCP - General Internal Medicine 06/08/22 Luna Barahona MD [address] [place], [place] [address] [address] Obstetrics and Gynecology 04/13/21 Crista Espinosa MD [address] [place], [place] [address] [address] Caterer'S Aide Obstetrics and Gynecology 10/14/21 Sol Sarmiento [address] [place] [address] Director Of Retail Marketing Director Of Retail Marketing 10/14/21 Bryan Quintana MD [address] [place], [place] [address] [address] Obstetrics and Gynecology 04/05/22 documented as of this encounter
--- OUTSIDE RECORDS SUMMARY | 2024-12-23 18:14 | XMS_ITS | Encounter Summary ---
Author Organization [facility] Address [address] [place] [address] Care Team Providers Care Project Control Officer Name Role Phone Lakshmi Garcia MD Primary Care Provider [phone] Luna Barahona MD Unavailable rCista Espinosa MD Unavailable [phone] Sarmiento Unavailable Unavailable Bryan Quintana MD Unavailable Rashid Coreas MD Primary Care Provider [phone] Encounter Details Date Type Department Care Team (Late st Contact Info) Description 08/18/2020 Orders Only [facility] Department of Nuclear Medicine [address] [facility] [place] [address] John Carranza MD [address] [facility] - [place] [address] Social History Tobacco Use Types Packs/Day Years Used Date Smoking Tobacco: Never Smokeless Tobacco: Never Alcohol Use Standard Drinks/Week Comments Yes 0 (1 standard drink = 0.6 oz pur e alcohol) AUDIT-C Answer Date Recorded Q1: How often [...] on file Sexual Orientation Not on file COVID-19 Exposure Response Date Recorded In the last month, have you been in contact with someone who was confirmed or suspected to have Coronavirus / COVID-19? No / Unsure 08/17/2020 10:44 AM EST documented as of this encounter Plan of Treatment Not on file documented as of this encounter Visit Diagnoses Not on filedocumented in this encounter Additional Health Concerns Infection Onset Date Last Indicated Resolved Time (Rule out) COVID-19 09/06/2020 09/06/2020 09/10/20 20 10:08 PM EST COVID-19 (confirmed) 09/27/2021 10/10/2021 022 10:08 PM EST documented as of this encounter Care Teams Project Control Officer Relationship Specialty Start Date End Date Lakshmi Garcia MD [address] [place] [address]-[place] [address] PCP - General 11/28/17 06/07/22 Rashid Coreas MD [address] [place] [address] [place] [address] PCP - General Internal Medicine 06/08/22 Luna Barahona MD [address] [place] [address] [phone] Obstetrics and Gynecology 04/13/21 Crista Espinosa MD [address] [place], [place] [address] [address] Analytics Specialist Obstetrics and Gynecology 10/14/21 Sol Sarmiento [address] [place] [address] Bed Control Specialist Bed Control Specialist 10/14/21 Bryan Quintana MD [address] [place], [place] [address] [address] Obstetrics and Gynecology 04/05/22 documented as of this encounter
--- OUTSIDE RECORDS SUMMARY | 2024-12-23 18:14 | XMS_ITS | Encounter Summary ---
Author Organization [facility] Address [address] [place] [address] Care Team Providers Care Sweeper Driver Name Role Phone Lakshmi Garcia MD Primary Care Provider [phone] Luna Barahona MD Unavailable Crista Espinosa MD Unavailable [phone] Sol Sarmiento Unavailable Unavailable Bryan Quintana MD Unavailable [phone] Rashid Coreas MD Primary Care Provider [phone] Encounter Details Date Type Department Care Team (Late st Contact Info) Description 10/14/2021 Orders Only [facility] Department of Women's Health Outpatient [place] [address] [place] [address] Crista Espinosa MD [address] [facility]-SY[place]HE[place] [address] Social History Tobacco Use Types Packs/Day Years Used Date Smoking Tobacco: Never Smokeless Tobacco: Never Alcohol Use Standard Drinks/Week Comments Not Currently 0 (1 standard drink = 0.6 oz [...] have Coronavirus / COVID-19? No / Unsure 10/12/2021 3:32 PM EST documented as of this encounter Plan of Treatment Not on file documented as of this encounter Visit Diagnoses Not on filedocumented in this encounter Additional Health Concerns Infection Onset Date Last Indicated Resolved Time COVID-19 (confirmed) 09/27/2021 10/10/2021 022 10:08 PM EST documented as of this encounter Care Teams Sweeper Driver Relationship Specialty Start Date End Date Lakshmi Garcia MD [address] [place] [address]-[place] [address] PCP - General 11/28/17 06/07/22 Rashid Coreas MD [address] [place] [address] [place] [address] PCP - General Internal Medicine 06/08/22 Luna Barahona MD [address] [place] [address]-SYNTHETIC [place] [address] Obstetrics and Gynecology 04/13/21 Crista Espinosa MD [address] [place] [address]SY[place]HE[place] [address] Steam Heating Installer Obstetrics and Gynecology 10/14/21 Sol Sarmiento [address] [place] [address] Telephone Directory Distributor Driver Telephone Directory Distributor Driver 10/14/21 Bryan Quintana MD [address] [place], [place] [address]SYNTHETIC [place] [address] Obstetrics and Gynecology 04/05/22 documented as of this encounter
== END 2024-12-23 16:49 | disposition home or self-care (01) ==
PROVIDERS: Physician Assistant; Emergency Provider Emergency Medicine
DX: N76.0 Acute vaginitis (principal); B37.31 Acute candidiasis of vulva and vagina; J02.9 Acute pharyngitis, unspecified; R05.9 Cough, unspecified; Z03.818 Encounter for observation for suspected exposure to other biological agents ruled out
CPT/HCPCS: 0241U; 71046; 81025; 81515; 87491; 87591; 87651; 99283; J1100

== ENCOUNTER → 2024-12-23 13:38 | Outpatient (BNV) | payer OTHER, SELFPAY | PROVIDERS: Emergency Provider Emergency Medicine; Visit Provider Radiology Diagnostic Radiology | DX: R05.9 Cough, unspecified (principal) | CPT/HCPCS: 71046 ==

== ENCOUNTER 2025-07-11 08:18 | Emergency (ER) | payer OTHER, SELFPAY ==
--- NOTE | ~2025-07-11 | XR_ITS ---
CLINICAL HISTORY: pain, injury 4 views left knee Comparison: None Findings: No fractures, subluxations or dislocations. Joint intervals are preserved. No osteochondral lesions or loose bodies. Normal patellar alignment. No suprapatellar joint effusion.No prepatellar soft tissue swelling. Normal bone mineralization and soft tissues. No unusual radiopaque foreign body. Impression: 1. Normal left knee. This document has been electronically signed by: Blas Foster MD on 07/11/2025 11:14:05
[2025-07-11 08:21] VITALS: BP 155/73; PULSE 80; RESP 20; TEMP 36.6; O2SAT 98; BMI 36.9
--- NOTE | 2025-07-11 08:30 | ED_ITS ---
HPI - General Adult General Chief complaint: Extremity Problem Stated complaint: l leg pain Time Seen by Provider: 07/11/25 08:30 Source: patient Mode of arrival: ambulatory Limitations: no limitations History of Present Illness ED Provider: Doreen Bedolla PA-C HPI narrative: Patient is a 45 year old assigned female at with a history of fibromyalgia presenting to the emergency department today with left knee pain. 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 Patient states that she was evaluated at [facility] on 07/06/2025 and was found to not have a blood clot in the left lower extremity but that was it. Patient states that the pain has continued. Patient states that she doesn't remember a specific incident before the pain. Patient states that the pain radiates up the back part of the leg from the knee and is mostly central to the back of the knee. Patient denies any other complaints at this time. Related Data Previous Rx's ?Medication ?Instructions ?Recorded azithromycin 250 mg tablet See Rx Instructions PO .COM PLEX #6 08/04/23 tabs omeprazole 20 mg capsule,delayed 20 mg PO DAILY #10 ca ps 08/04/23 release cyclobenzaprine 5 mg tablet 5 mg PO TID PRN muscle spa sm 7 11/20/23 days #21 tabs azithromycin 250 mg tablet See Rx Instructions PO .COM PLEX #6 09/08/24 tabs metronidazole 500 mg tablet 500 mg PO BID 7 days #14 t abs 12/23/24 fluconazole 150 mg tablet 150 mg PO Q3D 2 doses #2 tab s 12/24/24 prednisone 20 mg tablet 40 mg (2 x 20 mg) PO DAILY C OPD 07/11/25 exacerbation 5 days #10 tabs Allergies Allergy/AdvReac Type Severity Reaction Status Date / Time amoxicillin Allergy Intermediate Diarrhea Verified 07/11/25 08:24 Sulfa (Sulfonamide Allergy Intermediate Rash Verified 07/11/25 08:24 Antibiotics) Review of Systems Constitutional: Constitutional: Reports as per HPI Eyes: Eyes: Reports as per HPI ENT: Reports as per HPI Cardiovascular: Cardiovascular: Reports as per HPI Respiratory: Respiratory: Reports as per HPI Gastrointestinal: Gastrointestinal: Reports as per HPI Genitourinary: Genitourinary: Reports as per HPI Musculoskeletal: Musculoskeletal: Reports as per HPI Integumentary/Breasts: Skin/Breast: Reports as per HPI Neurologic: Reports as per HPI Psychiatric: Psychiatric: Reports as per HPI Endocrine: Endocrine: Reports as per HPI Hematologic/Lymphatic: Hematologic/Lymphatic: Reports as per HPI Allergic/Immunologic: Allergic/Immunologic: Reports as per HPI [facility] Past Medical History Attestation statement: The following information was validated with the patient. 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 Physical Exam ED Vital Signs: Vital Signs - 24 hr 07/11/25 08:21 Temperature 98 F Pulse Rate 80 Respiratory Rate 20 Blood Pressure 155/73 H Pulse Oximetry 98 Oxygen Delivery Method Room Air BMI result Body Mass Index 36.9 Const General: cooperative, no acute distress, alert and awake Nutritional Appearance: well nourished Orientation/consciousness: patient oriented x3 HENMT Head: Yes normal to inspection and Yes atraumatic Ears: hearing grossly normal bilaterally and external ears normal General nose exam: Normal external nose present, no nasal discharge noted and no epistaxis Face and sinus: Yes normal facial exam, No abrasion and No laceration Mouth: Normal oral and palatal mucosa present, no drooling and no muffled voice Eyes General: appearance normal, both eyes and all related structures Periorbital: periorbital findings normal Eyelids: Yes eyelids normal Conjunctivae: conjunctivae normal Pupils: Equal, round and reactive pupils present EOM: EOMs intact bilaterally Neck Neck: Yes normal visual inspection and Yes full ROM Resp Effort & Inspection: normal respiratory effort and able to speak in complete sentences Neuro General: patient oriented x3, moves all extremities and CN's II-XI intact bilaterally Cranial nerves: Yes Equal, round and reactive pupils present Cognition (Neuro): normal cognition Extrem Other: Patient has full ROM of the left knee but does have pain with flexion Patient has a positive anterior drawer and Kait tests of the left knee Patient has no pain with varus + valgus General: Yes normal to inspection, Yes full ROM and Yes capillary refill normal Psych Appearance: grossly normal Mental Status: mental status grossly normal Affect: normal affect Attitude: cooperative Thought process: Normal thought process present Thought content: Normal thought content present Insight: Good insight present (Psych) Medications Administered Discontinued Medications Generic Name Dose Route Start Last Admin Trade Name Naman PRN Reason Stop Dose Admin Ketorolac Tromethamine 15 mg 07/11/25 08:57 07/11/25 10:04 Ketorolac Tromethamine 15 Mg/Ml Vial IM 07/11/25 08:58 15 mg ONCE ONE Administration Methylprednisolone Sodium Succinate 60 mg 07/11/25 08:57 07/11/25 10:04 Methylprednisolone Sod Succ 125 Mg/2 Ml Vial IM 07/11/25 08:58 60 mg ONCE ONE Administration Procedures Orthopedic Splinting/Casting Left knee: Side: left Lower Extremity Injury Location: knee Lower Extremity Immobilizer: knee immobilizer Other Orthopedic Equipment: crutches Medical Decision Making Medical Decision Making MDM Narrative: Patient is a 45 year old assigned female at with a history of fibromyalgia presenting to the emergency department today with left knee pain. Patient's physical exam was as noted in the physical exam portion of this note and concerning for an internal knee injury such as sprain / strain / ACL injury / or meniscle injury. Patient's left knee x-ray showed no acute process. I explained my physical exam findings as well as all test results to the patient. I answered all questions asked by the patient. Patient's left knee was placed in an immobilizer, without incident. Patient's PMS was intact prior to and after immobilizer placement. Patient was given crutches with crutch instructions and was able to demonstrate proper crutch use while in the department. I stressed the importance of the patient taking her medication as directed (either prescribed or as the over the counter packaging recommends). I stressed the importance of the patient following up with her primary care provider, the orthopedic team, and work connection given this was a work place injury. I stressed the importance of the patient returning to the emergency department immediately if her symptoms were to worsen or if she were to develop any dizziness, shortness of breath, difficulty breathing, chest pain, blurry vision, loss of vision, nausea, vomiting, abdominal pain, fever, chills, back pain, or any other complaints. Patient verbalized agreement and understanding with this treatment plan and discharge. Differential Diagnosis Differential Diagnoses: The differential diagnosis associated with the presentation includes Left knee sprain Left knee strain Left ACL injury Left miniscul injury Left knee overuse syndrome Admission/Observation Consideration of admission/observation: Escalation of care including admission/observation considered Patient would have been admitted to the hospital had her work up had any findings where hospital admission was appropriate and her clinical presentation warranted hospital admission. Independent Interpretation I performed an independent interpretation of an: Plain X-Ray Interpretation: My interpretation is in agreement with the radiologist's impression of this imaging study. Reason for Exam: pain, injury CLINICAL HISTORY: pain, injury 4 views left knee Comparison: None Findings: No fractures, subluxations or dislocations. Joint intervals are preserved. No osteochondral lesions or loose bodies. Normal patellar alignment. No suprapatellar joint effusion.No prepatellar soft tissue swelling. Normal bone mineralization and soft tissues. No unusual radiopaque foreign body. Impression: 1. Normal left knee. This document has been electronically signed by: Blas Foster MD on 07/11/2025 11:14:05 Dictated By: Blas Foster MD Signed By: Electronically signed by Blas Foster MD 07/11/25 1114 Radiology Impression Discussion of test interpretation with radiology: I have reviewed the radiologist's reading. Discharge Plan Discharge Clinical Impression: Left knee sprain Patient Disposition: Home, Self-Care Instructions: Knee Sprain (DC), Crutch Instructions (ED), Knee Immobilizer (ED) Additional Instructions: The steroid I have prescribed you may cause upset stomach - be sure to take your omeprazole 40 minutes before taking the oral steroid in the morning. Your left knee x-ray showed no breaks/fractures however, as we discussed, you likely have an internal knee injury that needs to be further examined by the orthopedic team. Please wear the knee immobilizer brace for 24 to 48 hours. Allow your knee to rest. After 48 hours you can work on gentle range of motion testing of the knee but stop when you have pain. Use crutches as needed but you can bear weight on your toes. Follow up with the orthopedic team. Given this was a work place injury / incident - it is crucial you follow up with the work connection team. IF you are prescribed home medications and/or you are taking over the counter medications at home - it is very important you continue to do so as prescribed / directed unless told otherwise. Follow up with your primary care provider. Return to the emergency department immediately if your symptoms worsen or if you develop any numbness, tingling, dizziness, shortness of breath, difficulty breathing, chest pain, blurry vision, loss of vision, nausea, vomiting, abdominal pain, fever, chills, back pain, or any other complaints. Please see the information below about our Patient Portal. If you are not yet enrolled in the [facility] Patient Portal, you will receive an enrollment email invitation following your visit to any [facility] setting. You may also self-enroll in the Patient Portal by visiting our website: [email or web address] The following information is required to access the Patient Portal: - Your [facility] Medical Record Number - Your personal home email address (must match what is in your electronic medical record, Registration staff can assist with this) - Name - Date of Capabilities of the Patient Portal: - Message some providers - View upcoming appointments - Access your health summary, medical history, and visit history - View current conditions and allergies - View procedure and lab results - View your medications, including guidelines, side effects, and precautions - Complete pre-appointment questionnaires requested by your provider - Ready summary reports of your office visits and procedures To access the Patient Portal Mobile [employer], follow these directions: - Search [employer] in the [employer] Store or [employer] Store - Download the Cali - Search for [facility] - Enter your login/password Prescriptions: New prednisone 20 mg tablet 40 mg PO DAILY 5 Days Qty: 10 0RF No Action azithromycin 250 mg tablet See Rx Instructions .ROUTE .COMPLEX Qty: 6 0RF Rx Instructions: For 250 mg dose pack: take 500 mg today (day 1), then 250 mg for 4 days (days 2-5) omeprazole 20 mg capsule,delayed release(DR/EC) 20 mg PO DAILY Qty: 10 0RF azithromycin 250 mg tablet See Rx Instructions .ROUTE .COMPLEX Qty: 6 0RF Rx Instructions: For 250 mg dose pack: take 500 mg today (day 1), then 250 mg for 4 days (days 2-5) cyclobenzaprine 5 mg tablet 5 mg PO TID PRN (Reason: muscle spasm) 7 Days Qty: 21 0RF metronidazole 500 mg tablet 500 mg PO BID 7 Days Qty: 14 0RF fluconazole 150 mg tablet 150 mg PO Q3D Qty: 2 0RF Referrals: [facility] Orthopedic Surgeons [Provider Group] Referral Note: Call to establish and follow up with the orthopedic team for your left knee sprain / strain / injury. [facility] [Provider Group] Referral Note: Call to establish and follow up with the work connection team given this was a work place injury. Ina Edge MD [Primary Care Provider, Internal Medicine] Stand Alone Forms: Work/School Release Interventions: ED Discharge Assessment Last Done: 07/11/25 11:21 Print Language: Tajik
[2025-07-11 11:21] VITALS: BP 155/73; PULSE 80; RESP 20; TEMP 36.6; O2SAT 98
== END 2025-07-11 11:22 | disposition home or self-care (01) ==
PROVIDERS: Emergency Provider Emergency Medicine Emergency Medical Services; PCP Internal Medicine
DX: S83.92XA Sprain of unspecified site of left knee, initial encounter (principal); X58.XXXA Exposure to other specified factors, initial encounter; Y93.9 Activity, unspecified; Y92.9 Unspecified place or not applicable; Y99.0 Civilian activity done for income or pay; M25.562 Pain in left knee
CPT/HCPCS: 73564; 96372; 99283; 99284; J1885; J2919

== ENCOUNTER → 2025-07-11 08:57 | Outpatient (BNV) | payer OTHER, SELFPAY | PROVIDERS: Emergency Provider Emergency Medicine Emergency Medical Services; PCP Internal Medicine; Visit Provider Radiology Diagnostic Radiology | DX: S80.912A Unspecified superficial injury of left knee, initial encounter (principal) | CPT/HCPCS: 73564 ==

== ENCOUNTER 2025-07-23 03:11 | Emergency (ER) | payer OTHER, SELFPAY ==
[2025-07-23 03:13] VITALS: BP 167/77; PULSE 73; RESP 20; TEMP 36.6; O2SAT 100; BMI 36.6
--- OUTSIDE RECORDS SUMMARY | 2025-07-23 03:28 | XMS_ITS | Data Portability ---
Author Organization PRADIP [facility] [address] Address [address] [place] [address] Assessment No assessment recorded. Plan of Treatment Reminders Order Date Submit Date Provider Last Modified By Organization Details Last Modified Time Details Appointments None recorded. Lab urinalysis, dipstick 2022 023 [email or web address] _lolis burciaga, [address] [place] [address], [phone], 3 08:52:20 STI panel 2022 023 [place] [facility] ([facility], [address] [place] [address], [place], [address], 3 22:06:02 rapid SARS CoV 2 Ag, QL IA, respiratory specimen 2021 022 [email or web address] _lolis [facility], [address] [place] [address], [phone], 09:17:23 Referral None recorded. Procedures None recorded. Surgeries None recorded. Imaging None recorded. Medication Orders metronidazo le 500 mg tablet 2022 023 [place] [id number], [address] [place], [address], 3 08:52:22 Patient TargetsNo targets recorded. Patient Instructions Encounter Date Encounter Id Patient Instructions Last Modified By Organization Details Last Modified Time 08/25/2022 [id number] cough: care instructions [email or web address] Not available 08/25/2022 09:17:23 upper respirator y infection (cold): care instructions [email or web address] Not available 08/25/2022 09:17:23 rest, push fluids, continue mucinex [email or web address] Not available 08/25/2022 09:16:14 01/26/2023 [id number] bacterial vaginosis: care instructions [email or web address] Not available 01/26/2023 08:52:20 Reason for Referral None Reported. 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 T/GC/ TV BESSY mycoplasma hominis BESSY NEGATI VE negati ve Not Available [facility] ([facility]) [address] [place], [address], 01/31/2023 22:06:02 01/27/20 23 01/30/2023 NUSWA B 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 T/GC/ TV BESSY ureaplasma spp BESSY POSITI VE negati ve abnormal Not Available [facility] ([facility]) [address] [place], [address], 01/31/2023 22:06:02 01/27/20 23 01/31/2023 NUSWA B 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 T/GC/ TV BESSY trich vag by BESSY NEGATI VE negati ve Not Available [facility] ([facility]) [address] [place], [address], 01/31/2023 22:06:02 01/27/20 23 01/31/2023 NUSWA B 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 T/GC/ TV BESSY chlamydia trachomatis, BESSY NEGATI VE negati ve Not Available [facility] ([facility]) [address] [facility], [place], [address], 01/31/2023 22:06:02 01/27/20 23 01/31/2023 NUSWA B 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 T/GC/ TV BESSY neisseria gonorrhoeae, BESSY NEGATI VE negati ve Not Available [facility] ([facility]) [address] [facility], [place], [address], 01/31/2023 22:06:02 01/27/20 23 01/26/2023 urina lysis , dipst ick Unknown Analyte Normal = light yellow Not Available [address], [place], [address], 01/26/2023 08:20:55 01/27/20 23 01/26/2023 urina lysis , dipst ick Unknown Analyte Yellow Not Available [address] [place] [address], [place], [address], 01/26/2023 08:20:55 01/27/20 23 01/26/2023 urina lysis , dipst ick Unknown Analyte Normal = clear Not Available [address] [place] [address], [place], [address], 01/26/2023 08:20:55 01/27/20 23 01/26/2023 urina lysis , dipst ick Unknown Analyte Slight ly Cloudy Not Available [address], [place], [address], 01/26/2023 08:20:55 01/27/20 23 01/26/2023 urina lysis , dipst ick Unknown Analyte Normal = negati ve Not Available mami booker [address], [place], [address], 01/26/2023 08:20:55 01/27/20 23 01/26/2023 urina lysis , dipst ick Unknown Analyte Negati ve Not Available mami booker [address], [place], [address], 01/26/2023 08:20:55 01/27/20 23 01/26/2023 urina lysis , dipst ick Unknown Analyte Normal = Negati ve Not Available mami booker [address], [place], [address], 01/26/2023 08:20:55 01/27/20 23 01/26/2023 urina lysis , dipst ick Unknown Analyte Negati ve Not Available mami booker [address], [place], [address], 01/26/2023 08:20:55 01/27/20 23 01/26/2023 urina lysis , dipst ick Unknown Analyte Normal = Negati ve Not Available mami booker [address], [place], [address], 01/26/2023 08:20:55 01/27/20 23 01/26/2023 urina lysis , dipst ick Unknown Analyte Negati ve Not Available mami booker [address], [place], [address], 01/26/2023 08:20:55 01/27/20 23 01/26/2023 urina lysis , dipst ick Unknown Analyte Normal = 1.010, 1.015, 1.020 Not Available mami booker [address], [place], [address], 01/26/2023 08:20:55 01/27/20 23 01/26/2023 urina lysis , dipst ick Unknown Analyte 1.030 Not Available lolis [address], [place], [address], 01/26/2023 08:20:55 01/27/20 23 01/26/2023 urina lysis , dipst ick Unknown Analyte Normal = Negati ve Not Available mami booker [address], [place], [address], 01/26/2023 08:20:55 01/27/20 23 01/26/2023 urina lysis , dipst ick Unknown Analyte Negati ve Not Available mami booker [address], [place], [address], 01/26/2023 08:20:55 01/27/20 23 01/26/2023 urina lysis , dipst ick Unknown Analyte Normal = 6.5, 7.0, 7.5, 8.0 Not Available mami booker [address], [place], [address], 01/26/2023 08:20:55 01/27/20 23 01/26/2023 urina lysis , dipst ick Unknown Analyte 5.5 Not Available [facility] [address], [place], [address], 01/26/2023 08:20:55 01/27/20 23 01/26/2023 urina lysis , dipst ick Unknown Analyte Normal = Negati ve Not Available mami [address] [place] [address], [place], [address], 01/26/2023 08:20:55 01/27/20 23 01/26/2023 urina lysis , dipst ick Unknown Analyte Trace Not Available [address], [place], [address], 01/26/2023 08:20:55 01/27/20 23 01/26/2023 urina lysis , dipst ick Unknown Analyte Normal = 0.2, 1.0 Not Available [facility] [address] [place] [address], [place], [address], 01/26/2023 08:20:55 01/27/20 23 01/26/2023 urina lysis , dipst ick Unknown Analyte 0.2 E.U./d L Not Available [address], [place], [address], 01/26/2023 08:20:55 01/27/20 23 01/26/2023 urina lysis , dipst ick Unknown Analyte Normal = Negati ve Not Available [address] [place] [address], [place], [address], 01/26/2023 08:20:55 01/27/20 23 01/26/2023 urina lysis , dipst ick Unknown Analyte Negati ve Not Available [address], [place], [address], 01/26/2023 08:20:55 01/27/20 23 01/26/2023 urina lysis , dipst ick Unknown Analyte Normal = Negati ve Not Available [address], [place], [address], 01/26/2023 08:20:55 01/27/20 23 01/26/2023 urina lysis , dipst ick Unknown Analyte Negati ve Not Available [address], [place], [address], 01/26/2023 08:20:55 Result Notes None recorded. Problems No Known Problems Procedures Surgical History Date Name Laterality Status Provider Name and Address Organization Details Recorded Time ligation of fallopian tube completed Mamta Nazario PA - [facility] 01/26/2023 08:21:05 Imaging Results None recorded. Procedure Notes None recorded. Medical Equipment None Reported. Allergies Allergen ID Allergen Name Allergen Category Reaction Reaction Severity Criticality Documentation Date Start Date Code Code System Note Provider Name and Address Organization Details Recorded Time Substance with sulfonami de structure and antibacte rial mechanism of action (substanc e) medicatio n rash Not available Not available 08/25/2022 39454 [id number] SNOMED TOM ANTHONYQUEZ guy, PA - [facility] 08:44:28 Medications Name Sig Start Date Stop [...] verbal numeric rating [Score] - Reported Systolic And Diastolic Provider Name and Address Organization Details Last Updated DateTime 3 167.64 cm 33.2 kg/m2 89403.0 3 g 100 % 100 % 60 /min 20 /min 98 [degF] 3 130/85 mm[Hg] Mamta Nazario PA - [facility] 3 08:23:49 Date Recorded Body height Body mass index (BMI) Body weight Oxygen saturation Oxygen saturation in Arterial blood by Pulse oximetry Heart rate Pain severity - 0-10 verbal numeric rating [Score] - Reported Respiratory rate Body temperature Systolic And Diastolic Provider Name and Address Organization Details Last Updated DateTime 2 167.64 cm 33.2 kg/m2 65343.0 3 g 100 % 100 % 61 /min 0 18 /min 97.9 [degF] 129/85 mm[Hg] TOM SANTANA PA - [facility] 08:47:10 Social History Question Answer Notes LastModified by Organizat ion Details LastModified Time Tobacco Smoking Status Never Smoker TOM SANTANA null, PA - [facility] 08/25/2022 08:45:34 What Is The Highest Grade Or Level Of School You Have Completed Or The Highest Degree You Have Received? [id number] [email or web address] Information not available 08/25/2022 What Is Your Water Source? City [email or web address] Information not available 08/25/2022 What Is Your Heat Source? Electric [email or web address] Information not available 08/25/2022 Have You Had Direct Contact, Or Contact During Intimacy, With Monkeypox Rash, Scabs, Or Body Fluids From A Person With Monkeypox? No Information not available 08/25/2022 What Is Your Relationship Status? Unknown [email or web address] Information not available 08/25/2022 Have You Recently Traveled Abroad? No [email or web address] Information no t available 08/25/2022 Are You Currently In School? No Information not available 08/25/2022 Sex: Unknown Functional Status Question Answer Note LastModified by Organizat ion Details LastModified Time Do you use any illicit or recreational drugs? No Information not available 08/25/2022 Do you or have you ever used any other forms of tobacco or nicotine? No Information not available 08/25/2022 What is your level of alcohol consumption? None Information not available 08/25/2022 Are you currently employed? No Information not available 08/25/2022 Mental Status None recorded. Family History Relationship Description Onset Age of this Age Resolved Age Notes LastModified by Organization Details LastModified Time Father No current problems or disability [email or web address] Not available 08/25/2022 08:45:22 Mother No current problems or disability [email or web address] Not available 08/25/2022 08:45:22 Medical History No medical history recorded. Gynecological History Statement/Question Response Date of LMP 01/16/2023 Is there any chance of ? No LMP Approximate Obstetrics History GPAL:G 0 P 0 0 0 0 Past Encounters Encounter ID Performer Location Encounter Start Date Encounter Closed Date Diagnosis/Indication Diagnosis SNOMED-CT Code Diagnosis ICD10 Code Diagnosis IMO Codes Diagnosis Note [id number] [address] [place] [address] 09/21/2021 15:44:11 09/21/2021 16:31:55 [id number] [address] [address] [place] [address] 09/27/2021 15:42:55 09/27/2021 18:39:05 [id number] [address] [address] [place] [address] 12/17/2021 09:30:28 12/17/2021 12:19:40 [id number] PRADIP CANTU [address] [place] [address] 08/25/2022 08:17:05 08/25/2022 09:28:51 Cough 99406481 R05.9 Upper resp iratory infection 83846167 J06.9 [id number] Car Vaughn MD [address] [place] [address] 01/26/2023 08:06:59 01/26/2023 08:51:34 Acute vaginitis 56729128 N76.0 Health Concerns Section Related Observation LastModified by Organization Detai ls LastModified Time None Recorded Concern Status LastModified by Organization Details LastModified Time None Recorded Advance Directives Directive None Recorded Payers Insurance Date Sequence Insurance Name Policy Number Policy Nesbitt Covered Member ID Nesbitt Member ID Guarantor Name 01/26/2023 1 [place] [employer] John Marino Jr [id number] Radha Marino 02/01/2023 1 [employer] [id number] Radha Marino [id number] Radha Marino Notes Date Note Type Note Provider Name and Address Organization Details Recorded Time 022 text/ht ml CoughReported by PatientHPIFor associated symptoms, patient reportspost nasal dripbut reportsno fever,no chills, andno nausea. For quality, patient reportsintermittentandsymptoms worse with lying down. For severity, patient reportsmoderate. For duration, patient reportsconstantand5 days. 5 day hx of sore throat, runny nose, headache. otc mucinex not helping. no fever PRADIP CANTU [address] [place], [address], [place] - [facility] 08/25/2022 09:17:27 023 text/ht ml Urinary / Brush Filler Hand Problems-FemaleReported by PatientGU ProblemsFor context, patient reportssexually active,1 partners in last year, andunprotected intercourse. For associated symptoms, patient reportswhite vaginal dischargebut reportsno flank pain,no blood in the urine,no pain during urination, andno urgency. For location, patient reportsvaginal. For severity, patient reportsmoderate. For duration, patient reportsconstant. For modifying factors, patient reportsnothing gives relief. HIstory recurrent BV Car Vaughn MD [address] [place], [address], [place] - [facility] 01/26/2023 08:52:24 OBGyn Episode No OBEpisode recorded.
--- OUTSIDE RECORDS SUMMARY | 2025-07-23 03:28 | XMS_ITS | Clinical Summary ---
Author Organization [facility] [address] [place] [address] Address [address] [place] [address] Phone Care Team Providers Care Automatic Vulcanizing Operator Name Role Phone Ina Edge MD Primary Care Provider [phone] Allergies Active Allergy Reactions Criticality Noted Date Comments Amoxicillin 03/06/2025 Cephalexin Nausea And Vomiting,Nausea Only Low 10/15/2018 Erythromycin Rash 01/31/2025 Sulfa (Sulfonamide Antibiotics) Hives 12/13/2006 Medications 1.5/, 28, 1.5 mg-30 mcg (21)/75 mg (7) per tablet Take 1 tablet by mouth 1 (one) time each day. 4 Active omeprazole OTC (PriLOSEC OTC) 20 mg EC tablet Take 1 tablet (20 mg total) by mouth 1 (one) time each day. Do not crush, chew, or split. 30 tablet 5 026 Active fluticasone furoate (Arnuity Ellipta) 100 mcg/actuation blister with device inhaler Inhale 1 puff by mouth 1 (one) time each day. 1 each 12 5 026 Active celecoxib (CeleBREX) 200 mg capsule Take 1 capsule (200 mg total) by mouth 2 (two) times a day if needed (pain). 60 each 1 5 Active polyethylene glycol (Golytely) 236-22.74-6.74 -5.86 gram solution Take 4L by mouth once for one dose. May substitue any PEG. Starting at 2PM the day before your procedure drink 1 8oz glasses at your own pace until you complete half of the gallon. Finish 2nd half of the gallon at 8PM. 4000 mL 5 Active bisacodyL (DULCOLAX) 5 mg EC tablet Take 2 tablets by mouth right before beginning bowel prep. See instructions provided by the office 2 tablet 5 Active LORazepam (ATIVAN) 0.5 mg tablet Take 1 tablet (0.5 mg total) by mouth See administration instructions. Take 1 tablet 1 hour before MRI scan, repeat the dose after 30 minutes if needed for anxiety. 2 tablet 5 Active albuterol HFA (PROAIR HFA ; PROVENTIL HFA ; VENTOLIN HFA) 90 mcg/actuation inhaler INHALE 2 PUFFS BY MOUTH EVERY 4 (FOUR) HOURS IF NEEDED FOR WHEEZING OR SHORTNESS OF BREATH. 6.7 each 1 5 026 Active Active Problems Problem Noted Date Diagnosed Date Endometriosis 08/13/2024 Adenomyosis 08/13/2024 Fibromyalgia 06/22/2024 ADD (attention deficit disorder) 06/22/2024 Tonsillar enlargement 09/20/2009 Encounters Date Type Department Care Team Description 07/06/2025 11:41 AM EDT - 07/06/2025 2:19 PM EDT Emergency Emergency [address] [place] [phone] Wyatt Longo MD Pain (Primary Dx); Pain in posterior left lower extremity Discharge Disposition: Home or Self Care 07/06/2025 Telephone Adult Medicine [address] [phone] Ina Edge MD 06/01/2025 10:47 AM EDT - 06/01/2025 11:59 PM EDT Hospital Encounter MRI [address] [place] [phone] Discharge Disposition: Home or Self Care 05/28/2025 Telephone Adult Medicine [address] [phone] Ina Edge MD 05/08/2025 2:08 PM EDT Anesthesia Event Endoscopy [address] [place] [phone] Luther Owen MD Guerin, Erik R, JAYME 05/08/2025 1:31 PM EDT - 05/08/2025 11:59 PM EDT Hospital Encounter Endoscopy [address] [place] [phone] Bernard Valdovinos MD Guerin, Erik R, Luther Thompson MD Gastroesophageal reflux disease without esophagitis; Rectal bleeding; Epigastric abdominal pain Discharge Disposition: Home or Self Care 05/08/2025 Telephone Adult Medicine [address] [phone] Ina Edge MD 05/07/2025 2:00 PM EDT Office Visit Adult [address] [phone] Ina Edge MD Fibromyalgia (Primary Dx); Meningioma ([facility] V24, [facility] V28) 05/05/2025 Telephone Adult [address] [phone] Ina Edge MD 05/01/2025 10:45 AM EDT Office Visit Pulmonology [facility] [address] [place] [phone] Alan Barcenas MD Cough variant asthma (Primary Dx) from Last 3 Months Immunizations Immunization Administration Dates Next Due PPD Test 12/17/2006 Td Tetanus diptheria (Tdvax) 7yo and older 12/31 Tdap Tetanus diptheria acell ular pertussis (Boostrix; Adacel) 7yo and older 08/21/2023,04/29/2010 Surgical History Surgery Date Site/Laterality Comments HAND SURGERY 07/17/1991 PROCEDURE: HISTORICAL HAND SURGERY TUBAL LIGATION 02/2018 PROCEDURE: HISTORICAL TUBAL LIGATION EYE SURGERY Bilateral PROCEDURE: HISTORICAL EYE SURGERY; COMMENT: 12/2015, 12/2016, 11/2017 - blephoplasty Medical History Medical History Date Comments Asthma Endometriosis GERD (gastroesophageal reflux disease) Family History Medical History Relation Name Comments [...] Not Answered Alcohol Use Standard Drinks/Week Comments Not Currently 0 (1 standard drink = 0.6 oz pur e alcohol) Interpersonal Safety Answer Date Record ed Physical Abuse Unrecognized value 05/08/2025 Verbal Abuse Unrecognized value 05/08/2025 Comments No Sex and Gender Information Value Date Recorded Sex Assigned at Female 08/13/2024 2:54 PM EST Legal Sex Female 7:58 AM EST Gender Identity Female 08/13/2024 2:54 PM EST Sexual Orientation Not on file Obstetrics History Last Filed Vital Signs Vital Sign Reading Time Taken Comments Blood Pressure 154/98 07/06/2025 12:16 PM EDT Pulse 74 07/06/2025 12:16 PM EDT Temperature 37.1 C (98.8 F) 07/06/2025 10:40 AM EDT Respiratory Rate 18 07/06/2025 12:16 PM EDT Oxygen Saturation 97% 07/06/2025 12:16 PM EDT Inhaled Oxygen Concentration - - Weight 104 kg (230 lb) 07/06/2025 10:40 AM EDT Height 167.6 cm (5' 6 ) 07/06/2025 10:40 AM EDT Body Mass Index 37.12 07/06/2025 10:40 AM EDT Plan of Treatment Upcoming Encounters Date Type Department Care Team (Late st Contact Info) Description 08/26/2025 4:00 PM EST Office Visit Adult Medicine [address] [phone] Ina Edge MD [address], [place] 04/30/2026 1:00 PM EDT Office Visit Pulmonology - [place] [address] [place] [phone] Alan Barcenas MD [address] [place] [phone] Health Maintenance Due Date Last Done Comments Breast Cancer Screening 1980 Hepatitis B Vaccines (1 of 3 - 19+ 3-dose series) 2000 Pneumococcal Vaccine: Pediatrics (0 to 5 Years) and At-Risk Patients (6 to 49 Years) (1 of 2 - PCV) 2000 HPV Vaccines (1 - 3-dose SCD M series) 2008 Cervical Cancer Screening: P ap Smear 06/18/2022 06/18/2019, 06/18/2019 Social Influencers of Health Screening 04/08/2024 Depression Screening 09/17/2024 08/13/2024 COVID-19 Vaccine ( - 2023-2 5 season) 2025 Influenza Vaccine (#1) 2025 Cholesterol Screening (Lipid Panel) 08/22/2029 08/22/2024, 11/29/2023 DTaP,Tdap,and Td Vaccines (4 - Td or Tdap) 08/21/2033 08/21/2023, 04/29/2010, 12/31/2006 Colorectal Cancer Screening: Colonoscopy 05/08/2035 05/08/2025 RSV Immunization Adult Patients (1 - 1-dose 75+ series) 2056 Hepatitis C Screening Completed 06/08/2022 , 06/08/2022 [...] deg or better. LTG 8 weeks General No Loren Rain, PT Note: Metal Spinner Goals 1. Patient will be independent with home exercise program to maintain therapeutic gains. 2. Patient will be able to turn while walking without pain or limitation 3. Patient will be able to negotiate steps with min to no pain or limitation Procedures Procedure Name Priority Date/Time Associated Diagnosis Comments EXTERNAL XRAY REPORT 07/11/2025 EXTERNAL XRAY REPORT 07/11/2025 VAS US DUPLEX LOWER EXT VENOUS LEFT STAT 07/06/2025 11:18 AM EDT Pain MR BRAIN WO AND W CONTRAST Routine 06/01/2025 1:32 PM EDT Meningioma (CMS/HCC V24, CMS/HCC V28) EXTERNAL MRI REPORT 06/01/2025 COLONOSCOPY Routine 05/08/2025 2:30 PM EDT Gastroesophageal reflux disease without esophagitis Rectal bleeding Epigastric abdominal pain EGD Routine 05/08/2025 2:30 PM EDT Gastroesophageal reflux disease without esophagitis Rectal bleeding Epigastric abdominal pain TISSUE EXAM Routine 05/08/2025 2:26 PM EDT Gastroesophageal reflux disease without esophagitis Rectal bleeding Epigastric abdominal pain LIPID PANEL WITH REFLEX TO DIRECT LDL Routine 08/22/2024 9:48 AM EST PE (physical exam), annual HIV SCREENING Routine 08/29/2022 HEPATITIS C SCREENING Routine 06/08/2022 from Last 3 Months or Most Recently Relevant to Health Maintenance Results * External Xray Report (07/11/2025) Only the most recent of2 resultswithin the time period is included. Anatomical Region Laterality Modality Radiographic Jayda ging us Provider [facility] XR PROCEDURES Final Result * Vascular US Duplex Lower Extremity Venous Left (07/06/2025 11:18 AM EDT) Anatomical Region Laterality Modality Vascular, Abdomen Ultrasound 07/06/2025 11:2 0 AM EDT Impressions 07/06/2025 11:20 AM EDT Impression: No evidence of deep vein thrombosis in the left femoral-popliteal venous segment. Telerad PRADIP ([id number]) -------- FINAL REPORT -------- Dictated By: Nadine Silva Dictated Date: 07/06/2025 11:20 ET Assigned Physician: Nadine Silva Reviewed and Electronically Signed By: Nadine Silva Signed Date: 07/06/2025 11:20 ET Workstation ID: [id number] Transcribed By: Self Edit Transcribed Date: 07/06/2025 11:20 ET Narrative 07/06/2025 11:20 AM EDT History: Left lower extremity pain. Findings: Duplex and color Doppler imaging of the left lower extremity was performed from the inguinal ligament to the popliteal fossa. The common femoral, femoral and popliteal veins are patent and compress completely. Normal spontaneous and phasic venous flow is demonstrated with Doppler. There is normal flow augmentation with calf compression. The deep calf veins, as visualized, are compressible. Procedure Note Nadine Silva MD - 07/06/2025 History: Left lower extremity pain. Findings: Duplex and color Doppler imaging of the left lower extremity was performedfrom the inguinal ligament to the popliteal fossa. The common femoral,femoral and popliteal veins are patent and compress completely. Normalspontaneous and phasic venous flow is demonstrated with Doppler. There isnormal flow augmentation with calf compression. The deep calf veins, as visualized, are compressible. IMPRESSION: Impression: No evidence of deep vein thrombosis in the leftfemoral-popliteal venous segment. Devin MOSELEY ([id number]) -------- FINAL REPORT -------- Dictated By: Nadine Silva Dictated Date: 07/06/2025 11:20 ET Assigned Physician: Nadine Silva Reviewed and Electronically Signed By: Nadine Silva Signed Date: 07/06/2025 11:20 ET Workstation ID: [id number] Transcribed By: Self Edit Transcribed Date: 07/06/2025 11:20 ET us Louis MOSELEY CV VASCULAR PROCEDURES Jonelle de souza Result * MR Brain wo and w Contrast (06/01/2025 1:32 PM EDT) Anatomical Region Laterality Modality Head and Neck Magnetic Resonan ce 06/02/2025 7:36 PM EDT Impressions 06/02/2025 8:08 PM EDT Stable subcentimeter meningioma along the anterior aspect of the sella. No significant mass effect upon adjacent structures. -------- FINAL REPORT -------- Dictated By: JOSE MARTIN REAL Dictated Date: 06/02/2025 19:36 ET Assigned Physician: JOSE MARTIN REAL Reviewed and Electronically Signed By: JOSE MARTIN REAL Signed Date: 06/02/2025 20:08 ET Workstation ID: [id number] Transcribed By: Self Edit Transcribed Date: 06/02/2025 19:36 ET Narrative 06/02/2025 8:08 PM EDT PROCEDURE: Brain MRI INDICATION: Mass TECHNIQUE: Multiplanar, multisequence MRI of the brain without and with contrast. 20 mL Dotarem injected intravenously without complication from a 20 mL vial COMPARISON: 02/22/2023 FINDINGS: No acute infarct, mass effect, or intracranial hemorrhage. 7 mm enhancing extra-axial mass along the anterior aspect of the sella is stable compared to prior. No significant mass effect upon adjacent structures. Ventricles, sulci, and cisterns are normal in size and configuration. No hydrocephalus. Foramen magnum is normal. Pituitary gland is normal. Brain parenchyma is normal in signal. No new abnormal intracranial enhancement. Scattered mucosal thickening seen throughout the sinuses. Mastoid air cells are clear. Orbits and skull base soft tissues are normal. Calvarium is normal. Procedure Note Joes Martin Real MD - 06/02/2025 PROCEDURE: Brain MRI INDICATION: Mass TECHNIQUE: Multiplanar, multisequence MRI of the brain without and withcontrast. 20 mL Dotarem injected intravenously without complication froma 20 mL vial COMPARISON: 02/22/2023 FINDINGS: No acute infarct, mass effect, or intracranial hemorrhage. 7 mm enhancing extra-axial mass along the anterior aspect of the sella isstable compared to prior. No significant mass effect upon adjacentstructures. Ventricles, sulci, and cisterns are normal in size and configuration. Nohydrocephalus. Foramen magnum is normal. Pituitary gland is normal. Brain parenchyma is normal in signal. No new abnormal intracranialenhancement. Scattered mucosal thickening seen throughout the sinuses. Mastoid aircells are clear. Orbits and skull base soft tissues are normal. Calvarium is normal. IMPRESSION: Stable subcentimeter meningioma along the anterior aspect of the sella.No significant mass effect upon adjacent structures. -------- FINAL REPORT -------- Dictated By: JOSE MARTIN REAL Dictated Date: 06/02/2025 19:36 ET Assigned Physician: JOSE MARTIN REAL Reviewed and Electronically Signed By: JOSE MARTIN REAL Signed Date: 06/02/2025 20:08 ET Workstation ID: [id number] Transcribed By: Self Edit Transcribed Date: 06/02/2025 19:36 ET Ina Edge MD [facility] Final Result * External MRI Report (06/01/2025) Anatomical Region Laterality Modality Magnetic Resonan ce Provider [facility] [place] Final Result * COLONOSCOPY Anesthesia - MAC; [facility] ENDOSCOPY (05/08/2025 2:30 PM EDT) Anatomical Region Laterality Modality Endoscopy 05/08/2025 1:45 PM EDT Impressions 05/08/2025 2:30 PM EDT - Non-bleeding internal hemorrhoids. - The examination was otherwise normal on direct and retroflexion views. - No specimens collected. Recommendation: - Perform an upper GI endoscopy today. - Repeat colonoscopy in 10 years for surveillance. Narrative 05/08/2025 2:30 PM EDT GI Patient Name: Sixto Kelly Procedure Date: 05/08/2025 1:45 PM Date of : 1980 Age: 44 Room: ROOM 15 Gender: Female Note Status: Finalized Attending MD: Bernard Valdovinos MD, Procedure Date No Time: 05/08/2025 Procedure: Colonoscopy Indications: Rectal bleeding Providers: Bernard Valdovinos MD Referring MD: Bernard Valdovinos MD Medicines: Monitored Anesthesia Care Complications: No immediate complications. Estimated Blood Loss: Estimated blood loss: none. Procedure: Pre-Anesthesia Assessment: - ASA Grade Assessment: II - A patient with mild systemic disease. - After reviewing the risks and benefits, the patient was deemed in satisfactory condition to undergo the procedure. After I obtained informed consent, the scope was passed under direct vision. Throughout the procedure, the patient's blood pressure, pulse, and oxygen saturations were monitored continuously.The Colonoscope was introduced through the anus and advanced to the cecum, identified by appendiceal orifice and ileocecal valve. The colonoscopy was performed without difficulty. The patient tolerated the procedure well. The quality of the bowel preparation was good. Findings: Non-bleeding internal hemorrhoids were found during retroflexion. The hemorrhoids were small. The exam was otherwise without abnormality on direct and retroflexion views. Procedure Code(s): --- Professional --- 83991, Colonoscopy, flexible; diagnostic, including collection of specimen(s) by brushing or washing, when performed (separate procedure) Diagnosis Code(s): --- Professional --- K62.5, Hemorrhage of anus and rectum CPT copyright 2020 [employer]. All rights reserved. The codes documented in this report are preliminary and upon inspector wire products review may be revised to meet current compliance requirements. Bernard Valdovinos MD 05/08/2025 2:30:17 PM This report has been signed electronically.Bernard Valdovinos MD Number of Addenda: 0 Note Initiated On: 05/08/2025 1:45 PM Scope In: Scope Out: Endoscopy Department at - [address] [place] [phone] Procedure Note Bernard Valdovinos MD - 05/08/2025 GI Patient Name: Sixto Kelly Procedure Date: 05/08/2025 1:45 PM Date of : 1980 Age: 44 Room: ROOM 15 Gender: Female Note Status: Finalized Attending MD: Bernard Valdovinos MD, Procedure Date No Time: 05/08/2025 Procedure: Colonoscopy Indications: Rectal bleeding Providers: Bernard Valdovinos MD Referring MD: Bernard Valdovinos MD Medicines: Monitored Anesthesia Care Complications: No immediate complications. Estimated Blood Loss: Estimated blood loss: none. Procedure: Pre-Anesthesia Assessment: - ASA Grade Assessment: II - A patient with mild systemic disease. - After reviewing the risks and benefits, thepatient was deemed in satisfactory condition to undergo the procedure. After I obtained informed consent, the scope was passed under direct vision. Throughout theprocedure, the patient's blood pressure, pulse, and oxygen saturations were monitored continuously.The Colonoscope was introduced through the anus and advanced to the cecum, identified by appendiceal orifice and ileocecal valve. The colonoscopy was performed without difficulty. The patient tolerated the procedure well. The quality of the bowel preparation was good. Findings: Non-bleeding internal hemorrhoids were found during retroflexion. The hemorrhoids were small. The exam was otherwise without abnormality ondirect and retroflexion views. Procedure Code(s): --- Professional --- 61761, Colonoscopy, flexible; diagnostic, including collection of specimen(s) by brushing or washing,when performed (separate procedure) Diagnosis Code(s): --- Professional --- K62.5, Hemorrhage of anus and rectum CPT copyright 2020 [employer]. All rights reserved. The codes documented in this report are preliminary and upon inspector wire products reviewmay be revised to meet current compliance requirements. Bernard Valdovinos MD 05/08/2025 2:30:17 PM This report has been signed electronically.Bernard Valdovinos MD Number of Addenda: 0 Note Initiated On: 05/08/2025 1:45 PM Scope In: Scope Out: Endoscopy Department at - [address] [place] [phone] IMPRESSION: - Non-bleeding internal hemorrhoids. - The examination was otherwise normal on directand retroflexion views. - No specimens collected. Recommendation: - Perform an upper GI endoscopy today. - Repeat colonoscopy in 10 years forsurveillance. Bernard Valdovinos MD GI~PROCEDURE ORDERABLES Final Result * EGD Anesthesia - MAC; [facility] ENDOSCOPY (05/08/2025 2:30 PM EDT) Anatomical Region Laterality Modality Endoscopy 05/08/2025 1:44 PM EDT Impressions 05/08/2025 2:31 PM EDT - Z-line regular, 40 cm from the incisors. - Normal esophagus. - Normal stomach. - Normal examined duodenum. - Several biopsies were obtained in the gastric antrum. Recommendation: - Discharge patient to home. - Resume previous diet. - Continue present medications. - Await pathology results. - Return to GI clinic as previously scheduled. Narrative 05/08/2025 2:31 PM EDT GI Patient Name: Sixto Kelly Procedure Date: 05/08/2025 1:44 PM Date of : 1980 Age: 44 Room: ROOM 15 Gender: Female Note Status: Finalized Attending MD: Bernard Valdovinos MD, Procedure Date No Time: 05/08/2025 Procedure: Upper GI endoscopy Indications: Gastro-esophageal reflux disease Providers: Bernard Valdovinos MD Referring MD: Bernard Valdovinos MD Medicines: Monitored Anesthesia Care Complications: No immediate complications. Estimated Blood Loss: Estimated blood loss: none. Procedure: Pre-Anesthesia Assessment: - ASA Grade Assessment: II - A patient with mild systemic disease. - After reviewing the risks and benefits, the patient was deemed in satisfactory condition to undergo the procedure. After obtaining informed consent, the endoscope was passed under direct vision. Throughout the procedure, the patient's blood pressure, pulse, and oxygen saturations were monitored continuously.The Endoscope was introduced through the mouth, and advanced to the third part of duodenum. The upper GI endoscopy was accomplished without difficulty. The patient tolerated the procedure well. Findings: The Z-line was regular and was found 40 cm from the incisors. The esophagus was normal. The entire examined stomach was normal. Several biopsies were obtained in the gastric antrum with cold forceps for histology. Estimated blood loss was minimal. The examined duodenum was normal. Procedure Code(s): --- Professional --- 51506, Esophagogastroduodenoscopy, flexible, transoral; with biopsy, single or multiple Diagnosis Code(s): --- Professional --- K21.9, Gastro-esophageal reflux disease without esophagitis CPT copyright 2020 [employer]. All rights reserved. The codes documented in this report are preliminary and upon inspector wire products review may be revised to meet current compliance requirements. Bernard Valdovinos MD 05/08/2025 2:31:29 PM This report has been signed electronically.Bernard Valdovinos MD Number of Addenda: 0 Note Initiated On: 05/08/2025 1:44 PM Scope In: Scope Out: Endoscopy Department at - [address] [place] [phone] Procedure Note Bernard Valdovinos MD - 05/08/2025 GI Patient Name: Sixto Kelly Procedure Date: 05/08/2025 1:44 PM Date of : 1980 Age: 44 Room: ROOM 15 Gender: Female Note Status: Finalized Attending MD: Bernard Valdovinos MD, Procedure Date No Time: 05/08/2025 Procedure: Upper GI endoscopy Indications: Gastro-esophageal reflux disease Providers: Bernard Valdovinos MD Referring MD: Bernard Valdovinos MD Medicines: Monitored Anesthesia Care Complications: No immediate complications. Estimated Blood Loss: Estimated blood loss: none. Procedure: Pre-Anesthesia Assessment: - ASA Grade Assessment: II - A patient with mild systemic disease. - After reviewing the risks and benefits, thepatient was deemed in satisfactory condition to undergo the procedure. After obtaining informed consent, the endoscope was passed under direct vision. Throughout theprocedure, the patient's blood pressure, pulse, and oxygen saturations were monitored continuously.TheEndoscope was introduced through the mouth, and advanced tothe third part of duodenum. The upper GI endoscopy was accomplished without difficulty. The patienttolerated the procedure well. Findings: The Z-line was regular and was found 40 cm from the incisors. The esophagus was normal. The entire examined stomach was normal. Several biopsies were obtained in the gastric antrum withcold forceps for histology. Estimated blood loss was minimal. The examined duodenum was normal. Procedure Code(s): --- Professional --- 93186, Esophagogastroduodenoscopy, flexible, transoral; with biopsy, single or multiple Diagnosis Code(s): --- Professional --- K21.9, Gastro-esophageal reflux disease without esophagitis CPT copyright 2020 [employer]. All rights reserved. The codes documented in this report are preliminary and upon inspector wire products reviewmay be revised to meet current compliance requirements. Bernard Valdovinos MD 05/08/2025 2:31:29 PM This report has been signed electronically.Bernard Valdovinos MD Number of Addenda: 0 Note Initiated On: 05/08/2025 1:44 PM Scope In: Scope Out: Endoscopy Department at - [address] [place] [phone] IMPRESSION: - Z-line regular, 40 cm from the incisors. - Normal esophagus. - Normal stomach. - Normal examined duodenum. - Several biopsies were obtained in the gastricantrum. Recommendation: - Discharge patient to home. - Resume previous diet. - Continue present medications. - Await pathology results. - Return to GI clinic as previously scheduled. us Bernard Valdovinos MD GI~PROCEDURE ORDERABLES Final Result * Tissue exam (05/08/2025 2:26 PM EDT) Addendum Immunohistochemistry : Helicobacter pylori: negative. 10:04 AM EDT [facility] Addendum electronically signed by Meseret Amato MD on 05/12/2025 at 10:04 AM Final Diagnosis A. Stomach, gastric antrum biopsy: - Gastric antral mucosa with minimal chronic gastritis. Note: Immunostain for Helicobacter pylori will be performed to rule out Helicobacter pylori infection in the setting of chronic gastritis as Helicobacter pylori organisms are not morphologically apparent on H&E stained slide. 10:04 AM EDT [facility] Gross Description A. Stomach, gastric antrum biopsy: Labeled gastric a stomach . Received in formalin are three soft, witt-pink tissue fragments ranging from 0.2 cm to zero point centimeters in greatest diameter, which are wrapped in paper and submitted in toto in one cassette, three pieces, multiple levels. TS 10:04 AM EDT [facility] Disclaimer NOTE: The immunohistochemical tests and in situ hybridization tests were developed and their performance characteristics were determined by [facility]. They have not been cleared or approved by the U.S. Food and Drug Administration. The FDA has determined that such clearance or approval is not necessary. These tests are used for clinical purposes. They should not be regarded as investigational or for research. This laboratory is certified under the Clinical Laboratory Improvement Amendments of 1988 (CLIA) as qualified to perform high complexity clinical laboratory testing. (controls appropriate) Unless otherwise specified, all tissue is 10% NB formalin fixed and paraffin embedded. 10:04 AM EDT [facility] Tissue Stomach structure / Unknown 05/08/2025 2:26 PM EDT 05/08/2025 3:46 PM EDT us Bernard Valdovinos MD LAB PATHOLOGY ORDERABLES Edit ed Result - Final [facility] [address] [place] [address], [place] [phone] * (ABNORMAL) Lipid panel with reflex to direct LDL (08/22/2024 9:48 AM EST) [facility] Cholesterol 211(H) 0 - 200 mg/dL LAB CHEMISTRY METHOD 08/22/2024 12:37 PM EST [facility] Triglycerides 128 0 - 150 mg/dL LAB CHEMISTRY METHOD 08/22/2024 12:37 PM EST [facility] HDL 63 >=40 mg/dL LAB CHEMISTRY METHOD 08/22/2024 12:37 PM [facility] LDL Calculated 122(H) 0 - 100 mg/dL LAB CHEMISTRY METHOD 08/22/2024 12:37 PM [facility] VLDL Cholesterol Mike 25.6 mg/dL LAB CHEMISTRY METHOD 08/22/2024 12:37 PM [facility] Non HDL Chol. (LDL+VLDL) 148(H) <145 mg/dL LAB CHEMISTRY METHOD 08/22/2024 12:37 PM [facility] Chol/HDL Ratio 3.3 0.0 - 4.4 LAB CHEMISTRY METHOD 08/22/2024 12:37 PM [facility] Blood Venous blood specimen / Unknown Venipuncture / Unknown 08/22/2024 9:48 AM EST 08/22/2024 9:48 AM EST Ina Edge MD LAB BLOOD ORDERABLES Final Resul t [facility] [address] [place] [address], [place] [phone] * HIV Screening (08/29/2022) [facility] HIV Screening abstracted Nick Rick MD HEALTH MAINTENANCE Final Result * Hepatitis C Screening (06/08/2022) [facility] Hepatitis C Screening abstracted us Historical Provider HEALTH MAINTENANCE Final Result from Last 3 Months or Most Recently Relevant to Health Maintenance Insurance [employer] Care Teams 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
[2025-07-23 03:39] VITALS: BP 167/77; PULSE 73; RESP 20; TEMP 36.6; O2SAT 100
--- NOTE | 2025-07-23 03:43 | PC.NURSE ---
pt present with R upper and lower limb edema, started this morning. Pt has mild pain with tingling to R hand and leg. Swelling noted on both R hand and leg/ foot. respirations even and unlabored, no other complaints at this time.
[2025-07-23 03:52] LABS: Hematocrit 38.3 % (37.0-47.0); Hemoglobin 12.2 g/dl (12.0-16.0); Imm Gran Abs Auto 0.02 X10*3/uL (0.00-0.03); Imm Gran Pct Auto 0.4 % (0.0-0.4); Lymphocytes Absolute Auto 2.9 X10*3/uL (1.2-4.9); MANUAL DIFF FLAG NO; Mean Corpuscular HGB Conc 31.9 g/dl (31.0-35.0); Mean Corpuscular Hemoglobin 26.6 pg (27.0-33.0); Mean Corpuscular Volume 83.6 fL (80.0-98.0); NRBC Abs Auto 0.000 X10*3/uL (0.0-0.012); NRBC Pct Auto 0.0 /100WBC (0.0-0.2); Platelet Count 301 X10*3/uL (160-400); Red Blood Count 4.58 X10*6/uL (4.20-5.50); White Blood Count 5.1 X10*3/uL (4.8-10.8)
[2025-07-23 04:10] LABS: Alanine Aminotransferase 24 U/L (0-31); Albumin Level 3.9 g/dL (3.5-5.0); Alkaline Phosphatase 27 U/L (39-117); Anion Gap 12 (12-20); Aspartate Amino Transferase 21 U/L (5-31); Blood Urea Nitrogen 10 mg/dL (9-16); Calcium 8.7 mg/dL (8.4-10.2); Carbon Dioxide 23 mmol/L (22-29); Chloride 108 mmol/L (96-108); Creatinine Clr Calc Pharmacy 101.2; Estimated Glomerular Filt Rate > 60; Potassium 4.0 mmol/L (3.3-5.1); Sodium 139 mmol/L (135-145); Total Protein 6.6 g/dL (6.5-8.0)
--- NOTE | 2025-07-23 06:50 | ED_ITS ---
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 Related Data Previous Rx's ?Medication ?Instructions ?Recorded azithromycin 250 mg tablet See Rx Instructions PO .COM PLEX #6 08/04/23 tabs omeprazole 20 mg capsule,delayed 20 mg PO DAILY #10 ca ps 08/04/23 release cyclobenzaprine 5 mg tablet 5 mg PO TID PRN muscle spa sm 7 11/20/23 days #21 tabs azithromycin 250 mg tablet See Rx Instructions PO .COM PLEX #6 09/08/24 tabs metronidazole 500 mg tablet 500 mg PO BID 7 days #14 t abs 12/23/24 fluconazole 150 mg tablet 150 mg PO Q3D 2 doses #2 tab s 12/24/24 prednisone 20 mg tablet 40 mg (2 x 20 mg) PO DAILY C OPD 07/11/25 exacerbation 5 days #10 tabs methylprednisolone 4 mg tablets in 4 mg PO DAILY #21 e a 07/23/25 a dose pack (Medrol (Mahesh)) omeprazole 20 mg capsule,delayed 20 mg PO DAILY 60 day s #60 caps 07/23/25 release Allergies Allergy/AdvReac Type Severity Reaction Status Date / Time amoxicillin Allergy Intermediate Diarrhea Verified 07/23/25 03:14 Sulfa (Sulfonamide Allergy Intermediate Rash Verified 07/23/25 03:14 Antibiotics) Review of Systems 2 Constitutional: Constitutional: Reports as per [facility] Past Medical History Medical History Fibromyalgia Social History Social History Alcohol intake: current Alcohol type: wine Patient Tobacco Use Status: Never used Tobacco Smoked in Last 30 Days: No Advance Directives: No 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 ?CV: RRR, no obvious murmurs appreciated ? ?Resp: ?No wheezing rales rhonchi no stridor moving air well ? Abd: ?Bowel sounds are present, no tenderness no rebound no rigidity ? ?MSK: Full range of motion bilateral upper and lower extremities, I did not note any pitting edema in upper or lower extremity, patient is able to make a fist, she is able to bend her knee, radial ulnar pulses +2 bilateral upper extremities and distally lower extremities there was no evidence that there is asymmetry of the calf or thigh, she may have slight dependent leg edema bilaterally but it is fairly equivocal ? Skin: Warm, dry, intact, ? ?Neuro: ?Alert and oriented x3, moving upper and lower extremities symmetrically, no obvious facial asymmetry noted, cranial nerves 2-12 intact Vital Signs: Vital Signs: Last Vital Signs Temp 97 F 07/23/25 07:22 Pulse 68 07/23/25 07:22 Resp 16 07/23/25 07:22 BP 139/83 07/23/25 07:22 Pulse Ox 97 07/23/25 07:22 O2 Del Method Room Air 07/23/25 07:22 BMI result Body Mass Index 36.6 Medications Administered Discontinued Medications Generic Name Dose Route Start Last Admin Trade Name Bradenq PRN Reason Stop Dose Admin Dexamethasone 10 mg 07/23/25 06:51 07/23/25 07:23 Dexamethasone 2 Mg Tablet PO 07/23/25 06:52 10 mg ONCE ONE Administration Omeprazole 40 mg 07/23/25 06:51 07/23/25 07:23 Omeprazole 40 Mg Capsule.Dr NG 07/23/25 06:52 40 mg ONCE ONE Administration Medical Decision Making Medical Decision Making MDM Narrative: 7:35 AM 07/23/2025 (Dr. Aneudy Cardenas): Well-appearing woman, presenting with likely a degree of sensation and early swelling that I am not able to appreciate on physical examination, there was no evidence that she has DVT did not find any evidence for ordering ultrasound of the upper or lower extremities, no risk factors for DVT identified, works as a patient carrier, possibly favoring 1 side and having some type of information Her blood work does not reveal any evidence of WILIAM, infectious etiology, liver issues and she does not have any evidence for CHF. See my discharge instructions Differential Diagnosis Differential Diagnoses: The differential diagnosis associated with the presentation includes (DVT, arterial insufficiency, cellulitis, synovitis, hematoma, arthritic changes) Admission/Observation Consideration of admission/observation: Escalation of care including admission/observation considered Lab Data MDM Lab Attestation statement: I reviewed the patient's lab results. 07/23/25 03:48 07/23/25 03:48 Labs: Lab Results 07/23/25 Range/Units 03:48 WBC 5.1 (4.8-10.8) X10*3/uL RBC 4.58 (4.20-5.50) X10*6/uL Hgb 12.2 (12.0-16.0) g/dl Hct 38.3 (37.0-47.0) % MCV 83.6 (80.0-98.0) fL MCH 26.6 L (27.0-33.0) pg MCHC 31.9 (31.0-35.0) g/dl RDW 13.7 (11.0-16.0) % Plt Count 301 (160-400) X10*3/uL MPV 9.5 (9.4-12.3) fL Immature Gran % (Auto) 0.4 (0.0-0.4) % Neut % (Auto) 28.0 L (45-73) % Lymph % (Auto) 56.5 H (20-40) % [place] % (Auto) 9.4 (2-11) % Eos % (Auto) 4.7 H (0-4) % Baso % (Auto) 1.0 (0-2) % Lymph # (Auto) 2.9 (1.2-4.9) X10*3/uL [place] # (Auto) 0.5 (0.1-1.2) X10*3/uL Eos # (Auto) 0.2 (0.0-0.4) X10*3/uL Baso # (Auto) 0.1 (0.0-0.2) X10*3/uL Abs Immat Gran (auto) 0.02 (0.00-0.03) X10*3/uL Absolute Neuts (auto) 1.4 L (2.0-8.3) x10*3/uL Absolute Nucleated RBC 0.000 (0.0-0.012) X10*3/uL Nucleated RBC % (auto) 0.0 (0.0-0.2) /100WBC Sodium 139 (135-145) mmol/L Potassium 4.0 (3.3-5.1) mmol/L Chloride 108 (96-108) mmol/L Carbon Dioxide 23 (22-29) mmol/L Anion Gap 12 (12-20) BUN 10 (9-16) mg/dL Creatinine 0.86 (0.5-1.4) mg/dL Estim Creat Clear Calc 101.2 Estimated GFR > 60 Random Glucose 91 (60-115) mg/dL Calcium 8.7 (8.4-10.2) mg/dL Total Bilirubin 0.3 (0.0-1.0) mg/dL AST 21 (5-31) U/L ALT 24 (0-31) U/L Alkaline Phosphatase 27 L (39-117) U/L Total Protein 6.6 (6.5-8.0) g/dL Albumin 3.9 (3.5-5.0) g/dL Tests considered The following testing was considered but not selected: Ultrasound right upper extremity, ultrasound right lower extremity Discharge Plan Discharge Clinical Impression: Edema of extremity, Numbness and tingling of right upper extremity Patient Disposition: Home, Self-Care Additional Instructions: Your blood work is actually very much reassuring there was no evidence for any kidney dysfunction, liver dysfunction, clinically there was no obvious evidence that you have significant swelling of your arm or leg, but as I mentioned I know that you w likely feel some degree of swelling that I am not able to appreciate by looking or palpating at this particular time, I suspect this is likely due to some type of overuse inflammation that happens over time, I see in your records that you have had left shoulder issues sometimes- a shoulder problem can also present with some tingling and slight swelling in the arm( so be on a look out for shoulder pain with overhead activity), with that said I do not see any evidence that you have something obviously concerning such as blood clots or infection for example, both legs have a small degree of dependent leg edema, wearing knee-high socks that are somewhat tighter will prevent that. Generally I believe your symptoms are caused by inflammation I recommend steroids starting tomorrow along with the omeprazole, take it with food, I am providing the 1st dose in the ER, and then I would like you to follow up with the PCP for re-evaluation, in the meantime if you develop shortness of breath, if the swelling is progressive and worrisome to come back to the ER for re-evaluation. Prescriptions: New omeprazole 20 mg capsule,delayed release(DR/EC) 20 mg PO DAILY 60 Days Qty: 60 0RF methylprednisolone [Medrol (Mahesh)] 4 mg tablets,dose pack 4 mg PO DAILY Qty: 21 0RF Rx Instructions: Day 1: 24 mg on day 1 administered as 8 mg before breakfast, 4 mg after lunch, 4 mg after supper, and 8 mg at bedtime or 24 mg as a single dose or divided into 2 or 3 doses upon initiation. Day 2: 20 mg on day 2 administered as 4 mg before breakfast, 4 mg after lunch, 4 mg after supper, and 8 mg at bedtime. Day 3: 16 mg on day 3 administered as 4 mg before breakfast, 4 mg after lunch, 4 mg after supper, and 4 mg at bedtime. Day 4: 12 mg on day 4 administered as 4 mg before breakfast, 4 mg after lunch, and 4 mg at bedtime. Day 5: 8 mg on day 5 administered as 4 mg before breakfast and 4 mg at bedtime. Day 6: 4 mg on day 6 administered as 4 mg before breakfast. No Action azithromycin 250 mg tablet See Rx Instructions .ROUTE .COMPLEX Qty: 6 0RF Rx Instructions: For 250 mg dose pack: take 500 mg today (day 1), then 250 mg for 4 days (days 2-5) omeprazole 20 mg capsule,delayed release(DR/EC) 20 mg PO DAILY Qty: 10 0RF azithromycin 250 mg tablet See Rx Instructions .ROUTE .COMPLEX Qty: 6 0RF Rx Instructions: For 250 mg dose pack: take 500 mg today (day 1), then 250 mg for 4 days (days 2-5) cyclobenzaprine 5 mg tablet 5 mg PO TID PRN (Reason: muscle spasm) 7 Days Qty: 21 0RF metronidazole 500 mg tablet 500 mg PO BID 7 Days Qty: 14 0RF fluconazole 150 mg tablet 150 mg PO Q3D Qty: 2 0RF prednisone 20 mg tablet 40 mg PO DAILY 5 Days Qty: 10 0RF Discharge Date/Time: 07/23/25 07:27 Print Language: Nepali
[2025-07-23 07:22] VITALS: BP 139/83; PULSE 68; RESP 16; TEMP 36.1; O2SAT 97
== END 2025-07-23 07:27 | disposition home or self-care (01) ==
PROVIDERS: Emergency Provider Emergency Medicine
DX: R20.2 Paresthesia of skin (principal); R60.9 Edema, unspecified
CPT/HCPCS: 36415; 80053; 85025; 99283; 99284; J8540